=== PATIENT | female | born 1960 | race Caucasian/White ===

== ENCOUNTER → 2017-06-04 | Outpatient (CLI) | payer OTHER ==
[~2017-06-04] MED LIST: ATOR10TA88 PO; CLON1TAB3 PO; HYDR-5688 PO; MULT-506 PO; RXC5 PO; VERA240T20 PO
--- NOTE | 2017-06-04 16:02 | MAMMOGRAPHY REPORT ---
BILATERAL DIGITAL SCREENING MAMMOGRAM TOMOSYNTHESIS WITH CAD: 06/04/2017 CLINICAL HISTORY: Routine screening. Patient has no complaints. TECHNIQUE: Breast tomosynthesis in addition to standard 2D mammography was performed. Current study was also evaluated with a Computer Aided Detection (CAD) system. COMPARISON: Comparison is made to exams dated: 12/17/2013 mammogram, 12/04/2012 mammogram, 12/03/2011 ma mmogram - [facility], 06/06/2008, and 07/17/2009. BREAST COMPOSITION: The tissue of both breasts is almost entirely fatty. FINDINGS: No suspicious masses, calcifications, or areas of architectural distortion are noted in ei ther breast. There has been no significant interval change compared to prior exams. Scattered bilater al benign-appearing calcifications are not significantly changed. Nodular focal asymmetry in the rig ht upper outer quadrant is stable dating back to at least the 2008 exam. IMPRESSION: ACR BI-RADS CATEGORY 2: BENIGN There is no mammographic evidence of malignancy. A 1 year screening mammogram is recommended. The pa tient will receive written notification of the results. Approximately 10% of breast cancers are not detected with mammography. A negative mammographic report should not delay biopsy if a clinically suggestive mass is present. Bibi Cuevas M.D. ah/:06/04/2017 15:25:55 [employer] Lawyer: Jada WING)(M), [facility] letter sent: Normal 1/2 BI-RADS Code: ACR BI-RADS Category 2: Benign
== END | disposition home or self-care (01) ==
LOC: C.MAMM 14:27
PROVIDERS: ATTEND Student in an Organized Health Care Education/Training Program
DX: Z12.31 Encounter for screening mammogram for malignant neoplasm of breast (principal)

== ENCOUNTER 2019-05-03 06:45 | Inpatient (IN) ==
[2019-05-03] MEDS ORDERED: LORazepam 1 MG TAB SL STA (06:48)
[2019-05-03] MEDS ORDERED: LORazepam 1 MG TAB ONE ×2 (06:49)
[2019-05-03] MEDS ORDERED: LORazepam 2 MG/ML VIAL (IM USE) IM STA (06:50)
[2019-05-03] MEDS ORDERED: LORazepam 2 MG/ML VIAL (IM USE) ONE ×2 (06:53→06:58)
[2019-05-03 07:22] LABS: INR 1.1 (0.9-1.1); Partial Thromboplastin Time 28.1 Seconds (21.0-31.0); Prothrombin Time 10.9 Seconds (9.0-12.0)
[2019-05-03] MEDS ORDERED: OPTIRAY 320 125ml IV PRN (07:22)
[2019-05-03] MEDS ORDERED: MAGNESIUM SULFATE / D5W 1 GM/100 ML BAG IV ONE (07:23)
--- NOTE | 2019-05-03 07:26 | CT Scan Report ---
CT angio head w con CLINICAL HISTORY: 58 years-old Female with Pt c/o AMS. Acutely altered mental status COMPARISON STUDY: CT of the head of same day TECHNIQUE: Following the IV administration of 119 cc of Optiray 320, CT angiogram of the brain was pe rformed from the skull base to the vertex. Images are reviewed in the axial, sagittal, and coronal pl anes. 3-D MIPS images are created and assessed. IV contrast was administered without complication. A dose lowering technique was utilized adhering to the principles of ALARA. CT DOSE: 1112.40 mGy.cm FINDINGS: CT ANGIOGRAM OF THE BRAIN: The imaged bilateral internal carotid arteries are patent. The bilateral anterior and middle cerebral arteries are also patent. The vertebrobasilar system and posterior cerebral arteries are widely ghotra nt. There is no aneurysm, high-grade stenosis, or proximal branch occlusion identified. Dural sinuses appear patent. IMPRESSION: Unremarkable CTA of the head The above report was generated using voice recognition software. It may contain grammatical, syntax o r spelling errors. Electronically signed by: Arian Hui M.D. 05/03/2019 7:25 AM
--- NOTE | 2019-05-03 07:26 | CT Scan Report ---
CT head/brain wo con CLINICAL HISTORY: Stroke evaluation COMPARISON STUDY: No previous studies for comparison. TECHNIQUE: Axial CT of the brain is performed from the vertex to the skull base. IV contrast was not administered for this examination. A dose lowering technique was utilized adhering to the principles of ALARA. CT DOSE: FINDINGS: No intra or extra-axial mass lesions are visualized. There is no CT evidence of acute cortical infarc tion. There is no evidence of midline shift. There is no acute hemorrhage. No calvarial fractures ar e visualized. There are patchy white matter hypodensities likely on a small vessel basis. There is no evidence of pathologic ventricular dilatation. There is no evidence of acute sinusitis Foci of increased cortical attenuation within the left frontal lobe are felt to be artifactual. IMPRESSION: No acute intracranial findings Electronically signed by: Pedro Johnson M.D. 05/03/2019 7:19 AM
[2019-05-03] MEDS ORDERED: SODIUM CHLORIDE 0.9% 1000ML 1,000 ML IV ONE (07:29)
[2019-05-03 07:34] LABS: Alanine Aminotransferase 82 U/L (12-78); Albumin Level 3.1 gm/dl (3.4-5.0); Aspartate Aminotransferase 67 U/L (15-37); BUN Creatinine Ratio 2.8 (10-20); Blood Urea Nitrogen 2 mg/dl (7-18); Carbon Dioxide 22 mmol/L (21-32); Chloride 70 mmol/L (98-107); Creatinine Clr Calc Pharmacy 116.4 ml/min; Est GFR (African American) 116.9; Est GFR (Non-African American) 100.9; Glucose 177 mg/dl (70-99); Magnesium 1.5 mg/dl (1.8-2.4); Potassium 2.9 mmol/L (3.5-5.1); Sodium 110 mmol/L (136-145)
[2019-05-03] MEDS: POTASSIUM CHLORIDE / WTR 10 MEQ/100 ML PLCT IV SCH ×6 (07:34→19:44)
--- NOTE | 2019-05-03 07:34 | CT Scan Report ---
CT angio neck with con CLINICAL HISTORY: Change in mental status. Possible acute stroke. COMPARISON STUDY: No previous studies for comparison. TECHNIQUE: CT angiography was performed from the aortic arch to the skull base. MIP imaging was perfo rmed. The patient was scanned in a dynamic helical fashion during intravenous administration of 119 c c of Optiray 320. A dose lowering technique was utilized adhering to the principles of ALARA. CT DOSE: Technique: CT angiogram of the carotid and vertebral arteries was obtained using intravenous contrast and 3-D reconstruction. NASCET criteria was utilized. Findings: The right carotid revealed no evidence of aneurysm and no evidence of dissection. There is no evidenc e of hemodynamic significant stenosis. The left carotid revealed no evidence of hemodynamic significant stenosis. There is no evidence of an eurysm. There is no evidence of dissection. No significant abnormalities of the left vertebral artery are visualized. Evaluation the right verteb ral artery is limited due to artifact from cervical spine hardware. There is an equivocal stenosis of the proximal right vertebral artery. IMPRESSION: 1. No evidence of hemodynamically significant carotid stenosis. No evidence of dissection 2. No significant abnormalities the left vertebral artery identified 3. Equivocal high-grade stenosis of the proximal right vertebral artery. Evaluation is limited due to artifact secondary to cervical spine hardware. Electronically signed by: Pedro Johnson M.D. 05/03/2019 7:33 AM
[2019-05-03 07:37] LABS: Albumin Globulin Ratio 0.8 (0.9-2); Alkaline Phosphatase 123 U/L (45-117); Bilirubin,Total 1.3 mg/dl (0.2-1); Creatine Kinase MB 3.2 ng/ml (0.5-3.6); Total Protein 7.1 gm/dl (6.4-8.2); Troponin I < 0.015 ng/ml (0-0.045)
[2019-05-03 07:40] LABS: Hemoglobin 16.4 g/dL (12.0-16.0); Mean Corpuscular Hgb Conc 38.1 g/dL (32-36); Mean Corpuscular Volume 85.5 fL (80-100); RDW Coefficient of Variation 13.6 % (11.5-14.5); RDW Standard Deviation 42.1 fL (36.4-46.3); Red Blood Count 5.03 M/uL (4.2-5.4); White Blood Count 13.98 K/uL (4.8-10.8)
[2019-05-03 07:42] LABS: iSTAT Blood Urea Nitrogen < 3 mg/dl (7-18); iSTAT Carbon Dioxide 21 mEq/l (24-31); iSTAT Glucose 180 mg/dl (70-99); iSTAT Hemoglobin 17.7 g/dl (12.0-16.0)
[2019-05-03 07:52] LABS: Basophils # (auto) 0.01 K/uL (0-0.2); Basophils % (auto) 0.1 %; Eosinophils # (auto) 0.01 K/uL (0-0.5); Eosinophils % (auto) 0.1 %; Immature Granulocytes % (auto) 0.7 %; Lymphocytes # (auto) 1.03 K/uL (1.2-3.4); Lymphocytes % (auto) 7.4 %; Mean Platelet Volume 11.4 fL (7.4-10.4); Monocytes # (auto) 0.85 K/uL (0.11-0.59); Monocytes % (auto) 6.1 %; Neutrophils # (auto) 11.98 K/uL (1.4-6.5); Neutrophils % (auto) 85.6 %; Platelet Count 72 K/uL (130-400); Platelet Estimate Decreased (Normal)
[2019-05-03] MEDS ORDERED: SODIUM CHLORIDE 3 % 500 ML IV SCH (08:00)
--- NOTE | 2019-05-03 08:10 | Critical Care Consultation ---
Date of Consultation May 03, 2019 Assessment & Plan (1) Hyponatremia: Reason Critically ill: Pt is a 58yo with seizures and altered mental status likely secondary to severe hyponatremia, hypokalemia and hypomagnesemia in the setting of chronic beer ingestion and recent tramadol use. NEURO CAM ICU POSITIVE ALTERED MENTAL STATUS -Altered mental status likely secondary to electrolyte abnormalities, particularly hyponatremia -Head CT and CTA unremarkable -will continue to monitor and reorient as needed. SEIZURES -Likely secondary to severe hyponatremia -Tramadol use for back pain, lowers seizure threshold and likely contributory as well -s/p Ativan and Keppra administration in the ED HX OF ALCOHOL ABUSE -Per pt with Hx of alcohol abuse, beer drinker of 10-12 drinks per day, likely cause of electrolyte abnormalities -might require substance abuse counseling on discharge -phenobarb protocol CHRONIC BACK PAIN -continue home gabapentin -NO tramadol CARDS/VASCULAR EKG 05/03-Normal sinus rhythm with prolonged qtc, 546 HTN -BP elevated currently, continue home Verapamil HLD -continue home statin RESP -Currently on 2L O2 -Chest XR, unremarkable GI -NPO -GI prophylaxis RENAL -severe hyponatremia (110 on admission) requiring correction with hypertonic saline -Urine output greater than 2L in 2 hours--DDAVP (desmopressin) administered. -franklin in -correction of hypokalemia, hypophosphatemia, hypomagnesemia and other electrolyte abnormalities -Goal of Na of 114 today, slow replacement as quick correction can precipitate CPD ID -no concerns currently PIVs intact, arterial line CODE Status: Full DVT prophylaxis-SCDs Dispo: ICU Supervising Physician Co-Signing Physician Notes Dr. Gr was resident physician during care of patient. I separately evaluated patient for quiroz portions of the history and the exam. I was present during the critical portion of medical decision making, and I discussed the case with the resident. I generally agree with the findings and plan. Severe hyponatremia with presumptive seizure. Empiric treatment with 3% saline and patient had subsequent large urine output necessitating DDAVP. Frequent labs. I have personally spent 90 minutes of critical care time in the direct management of this patient. This is a life/limb threatening event. This includes time spent evaluating patient, direct bedside care, chart review, placing orders, interpretation of diagnostic studies, discussion with consu ltants, patient, and/or family members regarding treatment decisions, as well as other required patient management activities. This time is exclusive of all separately billable procedures, and teaching time and separate from and in addition to any other critical care service time. History of Present Illness History of Present Illness Most of the history provided by pt's and review of medical Hx. Ms. Cleaning is a 58yo with a Hx of chronic back pain s/p surgery in November 2018, who became a chronic alcohol drinker around March when she ran out of medication. states she has periods where she doesn't drink but when she does it is usually at least 12 beers a day. States she was in her usual state of mind yesterday. Yesterday he states she said she was not feeling well. However, early this morning he noticed she was mentally altered. Called EMS, and noted her having a seizure after EMS arrived. In the ED she was noted to have severe hyponatremia and electrolyte abnormalities. Allergies Allergy/AdvReac Type Severity Reaction Status Date / Time Penicillins Allergy Severe ANAPHYLAXIS Verified 05/03/19 08:06 adhesive Allergy Intermediate REDNESS Verified 05/03/19 08:06 WITH SOME BANDAIDS sulfamethoxazole Allergy Intermediate HIVES RASH Verified 05/03/19 08:06 trimethoprim Allergy Intermediate HIVES RASH Verified 05/03/19 08:06 Bactrim Allergy Unknown HIVES RASH Unverified 05/03/19 08:06 pravastatin AdvReac Mild MUSCLE PAIN Verified 05/03/19 08:06 Home Medications Home Medications Medication Instructions Recorded Confirmed Type acetaminophen [Tylenol Extra 1,000 mg PO TID 11/12/18 05/03/19 History Strength] atorvastatin 10 mg PO HS 05/03/19 05/03/19 History clonazepam 1.5 mg PO HS PRN 05/03/19 05/03/19 History gabapentin 200 mg PO TID 05/03/19 05/03/19 History tramadol 100 mg PO QID PRN 05/03/19 05/03/19 History verapamil 240 mg PO PM 05/03/19 05/03/19 History lisinopril 10 mg PO DAILY #30 tab 05/09/19 Rx metoprolol tartrate 25 mg PO BID 30 Days #60 tab 05/09/19 Rx Patient History Medical History GERD (gastroesophageal reflux disease) (Chronic) Restless leg syndrome (Chronic) Hypertension (Chronic) Hyperlipidemia (Chronic) Osteoarthritis (Chronic) Chronic back pain (Chronic) WITH RLE RADICULOPATHY Obesity (Chronic) Surgical History History of back surgery (Chronic) History of tubal ligation (Chronic) H/O neck surgery (Chronic) FUSION Hx of lumpectomy (Chronic) RIGHT BENIGN History of tooth extraction (Chronic) WISDOM TEETH Family History Sister Deep vein thrombosis Father Family hx of colon cancer Sister Heart disease Social History Preferred Language: Macedonian Communication Ability: Effective Compass Operator Required: No Beliefs That Will Affect Care: None marital status: Current Living Situation: Spouse Other Information That Helps Us Care for You: No Feels Safe at Home: Yes Smoking Status: Current every day smoker Tobacco Type: cigarettes Cigarettes Per Day: 1 pack/day Do You Dip or Chew Tobacco: No Second Hand Exposure: Yes Tobacco Cessation Education Requested by Patient: No Hx Alcohol Use: Yes Alcohol type: beer Alcohol Intake Frequency Comment: Drinks 60 beers in the past 1 week Hx Substance Use: No Review of Systems Review of Systems: Unobtainable due to cognitive status Physical Exam Physical Exam: General: Disoriented. HEENT: NC/AT Chest: Nontender to palpation. CV: RRR, Normal s1, s2. No murmurs appreciated Resp: Breath sounds clear bilaterally, no increased effort of breathing. Abdomen: Soft, nontender, nondistended. No guarding. No organomegaly appreciated. Extremities: No edema. Skin: Erythematous, warm without rashes. Psych: Not oriented. Mood and affect cannot be assessed. Results & Data Vital Signs (Past 12 Hours) Vital Signs Pulse Resp BP BP Pulse Ox 05/03/19 07:40 102 H 16 153/81 H 92 05/03/19 07:17 98 H 24 173/90 H 93 05/03/19 06:45 164/133 H Laboratory Results Laboratory Results - last 24 hr 05/03/19 05/03/19 05/03/19 07:01 07:05 07:05 WBC 13.98 H RBC 5.03 Hgb 16.4 H POC Hgb 17.7 H Hct 43.0 POC Hct 52 H MCV 85.5 MCH 32.6 MCHC 38.1 H RDW Std Deviation 42.1 RDW Coeff of Remberto 13.6 Plt Count 72 L MPV 11.4 H Immature Gran % (Auto) 0.7 Neut % (Auto) 85.6 Lymph % (Auto) 7.4 Lasalle % (Auto) 6.1 Eos % (Auto) 0.1 Baso % (Auto) 0.1 Immature Gran # (Auto) 0.10 H Neut # (Auto) 11.98 H Lymph # (Auto) 1.03 L [place] # (Auto) 0.85 H Eos # (Auto) 0.01 Baso # (Auto) 0.01 Platelet Estimate Decreased L Peripher Smr Path Cons PT 10.9 INR 1.1 APTT 28.1 PTT Ratio 1.0 VBG pH VBG pCO2 VBG pO2 VBG HCO3 VBG O2 Saturation VBG Base Excess Barometric Pressure POC Sodium 106 L* Sodium POC Potassium 2.9 L Potassium POC Chloride 70 L Chloride Carbon Dioxide POC Total CO2 21 L Anion Gap POC Anion Gap 19.0 POC BUN < 3 L BUN Creatinine POC Creatinine 0.2 L Est Cr Clr Drug Dosing Est GFR ( Amer) Est GFR (Non-Af Amer) BUN/Creatinine Ratio Glucose POC Glucose (other) 180 H Osmolality Lactate Calcium POC Ioniz Calcium Yovani 0.90 L Phosphorus Magnesium Total Bilirubin AST ALT Alkaline Phosphatase CK-MB (CK-2) Troponin I Total Protein Albumin Globulin Albumin/Globulin Ratio Urine Color Urine Appearance Urine pH Ur Specific Mcloud Urine Protein Urine Glucose (UA) Urine Ketones Urine Blood Urine Nitrite Urine Bilirubin Urine Urobilinogen Ur Leukocyte Esterase Urine WBC (Auto) Urine RBC (Auto) U Hyaline Cast (Auto) U Epithel Cells (Auto) Urine Bacteria (Auto) Urine Osmolality Ur Random Sodium Urine Sodium Urine Potassium Urine Chloride Nasal Screen MRSA (PCR) Urine Opiates Screen Ur Methadone, Qual Acetaminophen Urine Barbiturates Ur Phencyclidine (PCP) U Amphetamin/Meth Scrn MDMA (Ecstasy) Screen U Benzodiazepines Scrn Ur Cocaine Metabolite U Marijuana (THC) Screen Ethyl Alcohol mg/dL Methyl Alcohol Level A. phagocytophilum IgG A. phagocytophilum IgM A. phagocytophilum DNA A.phagocytophilum Intrp A. phagocytophilum Cmmt Lyme Disease IgG Ab Lyme Disease IgM Ab E. chaffeensis IgG Ab E. chaffeensis IgM Ab E.chaffeensis DNA (PCR) E. chaffeensis Interp E. chaffeensis Comment 07/05/03/19 05/03/19 07:05 07:41 07:41 WBC RBC Hgb POC Hgb Hct POC Hct MCV MCH MCHC RDW Std Deviation RDW Coeff of Remberto Plt Count MPV Immature Gran % (Auto) Neut % (Auto) Lymph % (Auto) Lasalle % (Auto) Eos % (Auto) Baso % (Auto) Immature Gran # (Auto) Neut # (Auto) Lymph # (Auto) [place] # (Auto) Eos # (Auto) Baso # (Auto) Platelet Estimate Peripher Smr Path Cons PT INR APTT PTT Ratio VBG pH VBG pCO2 VBG pO2 VBG HCO3 VBG O2 Saturation VBG Base Excess Barometric Pressure POC Sodium Sodium 110 L* POC Potassium Potassium 2.9 L POC Chloride Chloride 70 L Carbon Dioxide 22 POC Total CO2 Anion Gap 17.0 H POC Anion Gap POC BUN BUN 2 L Creatinine 0.58 L POC Creatinine Est Cr Clr Drug Dosing 116.4 Est GFR ( Amer) 116.9 Est GFR (Non-Af Amer) 100.9 BUN/Creatinine Ratio 2.8 L Glucose 177 H POC Glucose (other) Osmolality Lactate Calcium 8.0 L POC Ioniz Calcium Yovani Phosphorus Magnesium 1.5 L Total Bilirubin 1.3 H AST 67 H ALT 82 H Alkaline Phosphatase 123 H CK-MB (CK-2) 3.2 Troponin I < 0.015 Total Protein 7.1 Albumin 3.1 L Globulin 4.0 Albumin/Globulin Ratio 0.8 L Urine Color Urine Appearance Urine pH Ur Specific Mcloud Urine Protein Urine Glucose (UA) Urine Ketones Urine Blood Urine Nitrite Urine Bilirubin Urine Urobilinogen Ur Leukocyte Esterase Urine WBC (Auto) Urine RBC (Auto) U Hyaline Cast (Auto) U Epithel Cells (Auto) Urine Bacteria (Auto) Urine Osmolality 191 L Ur Random Sodium Urine Sodium Urine Potassium Urine Chloride Nasal Screen MRSA (PCR) Urine Opiates Screen Neg Ur Methadone, Qual Neg Acetaminophen Urine Barbiturates Neg Ur Phencyclidine (PCP) Neg U Amphetamin/Meth Scrn Neg MDMA (Ecstasy) Screen Neg U Benzodiazepines Scrn Neg Ur Cocaine Metabolite Neg U Marijuana (THC) Screen Neg Ethyl Alcohol mg/dL Methyl Alcohol Level A. phagocytophilum IgG A. phagocytophilum IgM A. phagocytophilum DNA A.phagocytophilum Intrp A. phagocytophilum Cmmt Lyme Disease IgG Ab Lyme Disease IgM Ab E. chaffeensis IgG Ab E. chaffeensis IgM Ab E.chaffeensis DNA (PCR) E. chaffeensis Interp E. chaffeensis Comment 05/03/19 05/03/19 05/03/19 07:41 07:41 07:41 WBC RBC Hgb POC Hgb Hct POC Hct MCV MCH MCHC RDW Std Deviation RDW Coeff of Remberto Plt Count MPV Immature Gran % (Auto) Neut % (Auto) Lymph % (Auto) Lasalle % (Auto) Eos % (Auto) Baso % (Auto) Immature Gran # (Auto) Neut # (Auto) Lymph # (Auto) [place] # (Auto) Eos # (Auto) Baso # (Auto) Platelet Estimate Peripher Smr Path Cons PT INR APTT PTT Ratio VBG pH VBG pCO2 VBG pO2 VBG HCO3 VBG O2 Saturation VBG Base Excess Barometric Pressure POC Sodium Sodium POC Potassium Potassium POC Chloride Chloride Carbon Dioxide POC Total CO2 Anion Gap POC Anion Gap POC BUN BUN Creatinine POC Creatinine Est Cr Clr Drug Dosing Est GFR ( Amer) Est GFR (Non-Af Amer) BUN/Creatinine Ratio Glucose POC Glucose (other) Osmolality Lactate Calcium POC Ioniz Calcium Yovani Phosphorus Magnesium Total Bilirubin AST ALT Alkaline Phosphatase CK-MB (CK-2) Troponin I Total Protein Albumin Globulin Albumin/Globulin Ratio Urine Color Yellow Urine Appearance Clear Urine pH 8.0 H Ur Specific Mcloud 1.022 Urine Protein 1+ H Urine Glucose (UA) Trace H Urine Ketones Trace H Urine Blood 2+ H Urine Nitrite Negative Urine Bilirubin Negative Urine Urobilinogen Negative Ur Leukocyte Esterase Negative Urine WBC (Auto) 0 Urine RBC (Auto) 10-30 H U Hyaline Cast (Auto) 1-5 U Epithel Cells (Auto) 5-10 H Urine Bacteria (Auto) Negative Urine Osmolality Ur Random Sodium Cancelled Urine Sodium 32 Urine Potassium 16.7 Urine Chloride 28 Nasal Screen MRSA (PCR) Urine Opiates Screen Ur Methadone, Qual Acetaminophen Urine Barbiturates Ur Phencyclidine (PCP) U Amphetamin/Meth Scrn MDMA (Ecstasy) Screen U Benzodiazepines Scrn Ur Cocaine Metabolite U Marijuana (THC) Screen Ethyl Alcohol mg/dL Methyl Alcohol Level A. phagocytophilum IgG A. phagocytophilum IgM A. phagocytophilum DNA A.phagocytophilum Intrp A. phagocytophilum Cmmt Lyme Disease IgG Ab Lyme Disease IgM Ab E. chaffeensis IgG Ab E. chaffeensis IgM Ab E.chaffeensis DNA (PCR) E. chaffeensis Interp E. chaffeensis Comment 05/03/19 05/03/19 05/03/19 08:31 08:31 08:31 WBC RBC Hgb POC Hgb Hct POC Hct MCV MCH MCHC RDW Std Deviation RDW Coeff of Remberto Plt Count MPV Immature Gran % (Auto) Neut % (Auto) Lymph % (Auto) [place] % (Auto) Eos % (Auto) Baso % (Auto) Immature Gran # (Auto) Neut # (Auto) Lymph # (Auto) [place] # (Auto) Eos # (Auto) Baso # (Auto) Platelet Estimate Peripher Smr Path Cons PT INR APTT PTT Ratio VBG pH VBG pCO2 VBG pO2 VBG HCO3 VBG O2 Saturation VBG Base Excess Barometric Pressure POC Sodium Sodium POC Potassium Potassium POC Chloride Chloride Carbon Dioxide POC Total CO2 Anion Gap POC Anion Gap POC BUN BUN Creatinine POC Creatinine Est Cr Clr Drug Dosing Est GFR ( Amer) Est GFR (Non-Af Amer) BUN/Creatinine Ratio Glucose POC Glucose (other) Osmolality 237 L* Lactate Calcium POC Ioniz Calcium Yovani Phosphorus Magnesium Total Bilirubin AST ALT Alkaline Phosphatase CK-MB (CK-2) Troponin I Total Protein Albumin Globulin Albumin/Globulin Ratio Urine Color Urine Appearance Urine pH Ur Specific Mcloud Urine Protein Urine Glucose (UA) Urine Ketones Urine Blood Urine Nitrite Urine Bilirubin Urine Urobilinogen Ur Leukocyte Esterase Urine WBC (Auto) Urine RBC (Auto) U Hyaline Cast (Auto) U Epithel Cells (Auto) Urine Bacteria (Auto) Urine Osmolality Ur Random Sodium Urine Sodium Urine Potassium Urine Chloride Nasal Screen MRSA (PCR) Urine Opiates Screen Ur Methadone, Qual Acetaminophen Urine Barbiturates Ur Phencyclidine (PCP) U Amphetamin/Meth Scrn MDMA (Ecstasy) Screen U Benzodiazepines Scrn Ur Cocaine Metabolite U Marijuana (THC) Screen Ethyl Alcohol mg/dL < 3.0 Methyl Alcohol Level A. phagocytophilum IgG A. phagocytophilum IgM A. phagocytophilum DNA A.phagocytophilum Intrp A. phagocytophilum Cmmt Lyme Disease IgG Ab Negative Lyme Disease IgM Ab Negative E. chaffeensis IgG Ab E. chaffeensis IgM Ab E.chaffeensis DNA (PCR) E. chaffeensis Interp E. chaffeensis Comment 05/03/19 05/03/19 05/03/19 08:31 08:31 08:31 WBC RBC Hgb POC Hgb Hct POC Hct MCV MCH MCHC RDW Std Deviation RDW Coeff of Remberto Plt Count MPV Immature Gran % (Auto) Neut % (Auto) Lymph % (Auto) [place] % (Auto) Eos % (Auto) Baso % (Auto) Immature Gran # (Auto) Neut # (Auto) Lymph # (Auto) [place] # (Auto) Eos # (Auto) Baso # (Auto) Platelet Estimate Peripher Smr Path Cons PT 10.9 INR 1.1 APTT PTT Ratio VBG pH VBG pCO2 VBG pO2 VBG HCO3 VBG O2 Saturation VBG Base Excess Barometric Pressure POC Sodium Sodium 113 L* POC Potassium Potassium 3.0 L POC Chloride Chloride 77 L Carbon Dioxide 23 POC Total CO2 Anion Gap 13.0 H POC Anion Gap POC BUN BUN 1 L Creatinine 0.50 L POC Creatinine Est Cr Clr Drug Dosing 135.0 Est GFR ( Amer) 122.8 Est GFR (Non-Af Amer) 105.9 BUN/Creatinine Ratio 2.4 L Glucose 187 H POC Glucose (other) Osmolality Lactate Calcium 7.5 L POC Ioniz Calcium Yovani Phosphorus 1.1 L* Magnesium 2.1 Total Bilirubin 1.2 H AST 63 H ALT 78 Alkaline Phosphatase 116 CK-MB (CK-2) Troponin I Total Protein 6.8 Albumin 2.9 L Globulin 3.9 Albumin/Globulin Ratio 0.7 L Urine Color Urine Appearance Urine pH Ur Specific Mcloud Urine Protein Urine Glucose (UA) Urine Ketones Urine Blood Urine Nitrite Urine Bilirubin Urine Urobilinogen Ur Leukocyte Esterase Urine WBC (Auto) Urine RBC (Auto) U Hyaline Cast (Auto) U Epithel Cells (Auto) Urine Bacteria (Auto) Urine Osmolality Ur Random Sodium Urine Sodium Urine Potassium Urine Chloride Nasal Screen MRSA (PCR) Urine Opiates Screen Ur Methadone, Qual Acetaminophen Urine Barbiturates Ur Phencyclidine (PCP) U Amphetamin/Meth Scrn MDMA (Ecstasy) Screen U Benzodiazepines Scrn Ur Cocaine Metabolite U Marijuana (THC) Screen Ethyl Alcohol mg/dL Methyl Alcohol Level Pending A. phagocytophilum IgG Pending A. phagocytophilum IgM Pending A. phagocytophilum DNA Pending A.phagocytophilum Intrp Pending A. phagocytophilum Cmmt Pending Lyme Disease IgG Ab Lyme Disease IgM Ab E. chaffeensis IgG Ab Pending E. chaffeensis IgM Ab Pending E.chaffeensis DNA (PCR) Pending E. chaffeensis Interp Pending E. chaffeensis Comment Pending 05/03/19 05/03/19 05/03/19 08:31 08:31 08:31 WBC RBC Hgb POC Hgb Hct POC Hct MCV MCH MCHC RDW Std Deviation RDW Coeff of Remberto Plt Count MPV Immature Gran % (Auto) Neut % (Auto) Lymph % (Auto) [place] % (Auto) Eos % (Auto) Baso % (Auto) Immature Gran # (Auto) Neut # (Auto) Lymph # (Auto) [place] # (Auto) Eos # (Auto) Baso # (Auto) Platelet Estimate Peripher Smr Path Cons PT INR APTT PTT Ratio VBG pH 7.47 H VBG pCO2 31 L VBG pO2 62 VBG HCO3 22 VBG O2 Saturation 93.3 VBG Base Excess -0.6 Barometric Pressure 728.7 POC Sodium Sodium POC Potassium Potassium POC Chloride Chloride Carbon Dioxide POC Total CO2 Anion Gap POC Anion Gap POC BUN BUN Creatinine POC Creatinine Est Cr Clr Drug Dosing Est GFR ( Amer) Est GFR (Non-Af Amer) BUN/Creatinine Ratio Glucose POC Glucose (other) Osmolality Lactate 2.8 H* Calcium POC Ioniz Calcium Yovani Phosphorus Magnesium Total Bilirubin AST ALT Alkaline Phosphatase CK-MB (CK-2) Troponin I Total Protein Albumin Globulin Albumin/Globulin Ratio Urine Color Urine Appearance Urine pH Ur Specific Mcloud Urine Protein Urine Glucose (UA) Urine Ketones Urine Blood Urine Nitrite Urine Bilirubin Urine Urobilinogen Ur Leukocyte Esterase Urine WBC (Auto) Urine RBC (Auto) U Hyaline Cast (Auto) U Epithel Cells (Auto) Urine Bacteria (Auto) Urine Osmolality Ur Random Sodium Urine Sodium Urine Potassium Urine Chloride Nasal Screen MRSA (PCR) Urine Opiates Screen Ur Methadone, Qual Acetaminophen < 2 L Urine Barbiturates Ur Phencyclidine (PCP) U Amphetamin/Meth Scrn MDMA (Ecstasy) Screen U Benzodiazepines Scrn Ur Cocaine Metabolite U Marijuana (THC) Screen Ethyl Alcohol mg/dL Methyl Alcohol Level A. phagocytophilum IgG A. phagocytophilum IgM A. phagocytophilum DNA A.phagocytophilum Intrp A. phagocytophilum Cmmt Lyme Disease IgG Ab Lyme Disease IgM Ab E. chaffeensis IgG Ab E. chaffeensis IgM Ab E.chaffeensis DNA (PCR) E. chaffeensis Interp E. chaffeensis Comment 05/03/19 05/03/19 05/03/19 08:31 09:00 09:26 WBC RBC Hgb POC Hgb Hct POC Hct MCV MCH MCHC RDW Std Deviation RDW Coeff of Remberto Plt Count MPV Immature Gran % (Auto) Neut % (Auto) Lymph % (Auto) [place] % (Auto) Eos % (Auto) Baso % (Auto) Immature Gran # (Auto) Neut # (Auto) Lymph # (Auto) [place] # (Auto) Eos # (Auto) Baso # (Auto) Platelet Estimate Peripher Smr Path Cons Pending PT INR APTT PTT Ratio VBG pH VBG pCO2 VBG pO2 VBG HCO3 VBG O2 Saturation VBG Base Excess Barometric Pressure POC Sodium Sodium Pending POC Potassium Potassium Pending POC Chloride Chloride Pending Carbon Dioxide Pending POC Total CO2 Anion Gap Pending POC Anion Gap POC BUN BUN Pending Creatinine Pending POC Creatinine Est Cr Clr Drug Dosing Pending Est GFR ( Amer) Pending Est GFR (Non-Af Amer) Pending BUN/Creatinine Ratio Pending Glucose Pending POC Glucose (other) Osmolality Lactate Calcium Pending POC Ioniz Calcium Yovani Phosphorus Magnesium Total Bilirubin AST ALT Alkaline Phosphatase CK-MB (CK-2) Troponin I Total Protein Albumin Globulin Albumin/Globulin Ratio Urine Color Urine Appearance Urine pH Ur Specific Mcloud Urine Protein Urine Glucose (UA) Urine Ketones Urine Blood Urine Nitrite Urine Bilirubin Urine Urobilinogen Ur Leukocyte Esterase Urine WBC (Auto) Urine RBC (Auto) U Hyaline Cast (Auto) U Epithel Cells (Auto) Urine Bacteria (Auto) Urine Osmolality Ur Random Sodium Urine Sodium Urine Potassium Urine Chloride Nasal Screen MRSA (PCR) Pending Urine Opiates Screen Ur Methadone, Qual Acetaminophen Urine Barbiturates Ur Phencyclidine (PCP) U Amphetamin/Meth Scrn MDMA (Ecstasy) Screen U Benzodiazepines Scrn Ur Cocaine Metabolite U Marijuana (THC) Screen Ethyl Alcohol mg/dL Methyl Alcohol Level A. phagocytophilum IgG A. phagocytophilum IgM A. phagocytophilum DNA A.phagocytophilum Intrp A. phagocytophilum Cmmt Lyme Disease IgG Ab Lyme Disease IgM Ab E. chaffeensis IgG Ab E. chaffeensis IgM Ab E.chaffeensis DNA (PCR) E. chaffeensis Interp E. chaffeensis Comment Medications Administered Home Medications acetaminophen [Tylenol Extra Strength] 1,000 mg PO TID 11/12/18 [History Confirmed 05/03/19] atorvastatin 10 mg PO HS 05/03/19 [History Confirmed 05/03/19] clonazepam 1.5 mg PO HS PRN 05/03/19 [History Confirmed 05/03/19] gabapentin 200 mg PO TID 05/03/19 [History Confirmed 05/03/19] tramadol 100 mg PO QID PRN 05/03/19 [History Confirmed 05/03/19] verapamil 240 mg PO PM 05/03/19 [History Confirmed 05/03/19] Active Medications Albuterol (Duoneb) 3 ml INH Q4H PRN PRN Reason: Dyspnea Stop: 06/02/19 09:08 Atorvastatin Calcium (Lipitor) 10 mg PO HS [facility] Stop: 06/02/19 20:59 Dextrose (Dextrose 50%) 25 - 50 ml IV UD PRN; Protocol PRN Reason: Hypoglycemia Protocol Stop: 06/02/19 09:08 Gabapentin (Neurontin) 200 mg PO TID [facility]AS[facility] Stop: 06/02/19 09:29 Glucagon (Glucagen) 1 mg SQ UD PRN; Protocol PRN Reason: Hypoglycemia Protocol Stop: 06/02/19 09:08 Glucose (Glucose 40%) 15 - 30 gm PO UD PRN; Protocol PRN Reason: Hypoglycemia Protocol Stop: 06/02/19 09:08 Glucose (Dex4 Glucose) 4 - 8 tabs PO UD PRN; Protocol PRN Reason: Hypoglycemia Protocol Stop: 06/02/19 09:08 Desmopressin Acetate 2 mcg/ (Sodium Chloride) 50.5 mls @ 100 mls/hr IV Q8H [facility] Stop: 05/05/19 01:31 Last Admin: 05/03/19 09:37 Dose: 100 mls/hr Documented by: Parenteral Electrolytes (Normosol-R) 1,000 mls @ 100 mls/hr IV .Q10H [facility] Stop: 06/02/19 09:59 Last Admin: 05/03/19 09:57 Dose: 100 mls/hr Documented by: Phenobarbital Sodium 160 mg/ (Syringe) 1.2308 mls @ 0 mls/min IM Q3H [facility] Stop: 05/03/19 16:01 Potassium Phosphate 27 mmol/ (Sodium Chloride) 509 mls @ 101.8 mls/hr IV NOW ONE Stop: 05/03/19 14:59 Last Admin: 05/03/19 10:05 Dose: 101.8 mls/hr Documented by: Insulin Aspart (Novolog Flexpen) 0 units SC ACHS [facility] Stop: 06/02/19 11:29 Miscellaneous (Icu Protocol For Hyperglycemia) 1 ea N/A PRN PRN; Protocol PRN Reason: Hyperglycemia Protocol Stop: 05/05/19 09:08 Miscellaneous (Carbohydrates For Hypoglycemia) 15 - 30 gm PO UD PRN PRN Reason: Hypoglycemia Treatment Stop: 06/02/19 09:08 Phenobarbital (Phenobarbital) 64.8 mg PO BID [facility] Stop: 05/04/19 09:01 Phenobarbital (Phenobarbital) 32.4 mg PO BID [facility] Stop: 05/05/19 21:01 Phenobarbital Sodium (Phenobarbital Sodium) 64 mg IM Q6H PRN PRN Reason: Undecided Stop: 06/02/19 08:43 Verapamil HCl (Calan Sr) 240 mg PO QAM [facility] Stop: 06/02/19 09:29 PG Care Time/CCT Total # of Minutes Spent Total Time Spent with Patient: Total time spent is greater than 50% in coordination of care (as documented) at patient's floor/unit and/or counseling patient: Critical Care Time: Yes Total Critical Care Time: 90
--- NOTE | 2019-05-03 08:16 | XRay Report ---
XR chest 1V portable HISTORY: 58 years-old Female Pt c/o AMS acutely altered mental status COMPARISON: Chest radiograph 11/20/2018, CTA of the neck 05/03/2019. TECHNIQUE: Portable AP view of the chest FINDINGS: Cardiomediastinal and hilar silhouettes are within normal limits. No pneumothorax, pleural effusion, focal airspace consolidation or overt pulmonary edema. Bones of the chest appear grossly intact. Fusi on hardware of the cervical spine. IMPRESSION: No acute process. The above report was generated using voice recognition software. It may contain grammatical, syntax o r spelling errors. Electronically signed by: Arian Hui M.D. 05/03/2019 8:15 AM
[2019-05-03 08:26] LABS: Amphetamines+Metham, Urine Neg (Neg); Barbiturates, Urine Neg (Neg); Benzodiazepine, Urine Neg (Neg); Cocaine, Urine Neg (Neg); MDMA (Ecstacy), Urine Neg (Neg); Methadone, Urine Neg (Neg); Opiate, Urine Neg (Neg); Phencyclidine, Urine Neg (Neg)
[2019-05-03 08:38] LABS: Appearance Urine Clear (Clear); Bacteria Urine Automated Negative (Negative); Bilirubin Urine Negative (Negative); Color Urine Yellow; Glucose Urine UA Trace (Negative); Ketones Urine Trace (Negative); Leukocyte Esterase Urine Negative (Negative); Nitrite Urine Negative (Negative); Specific Gravity Urine 1.022 (1.000-1.030); Urobilinogen Urine Negative (Negative); WBC Urine Automated 0 /hpf (0-5)
[2019-05-03] MEDS ORDERED: PHENobarbital sodium 65 MG/ML VIAL IM PRN (08:44)
[2019-05-03 08:51] LABS: Base Excess VBG -0.6 mEq/L; Oxygen Saturation VBG 93.3 %; pH VBG 7.47 (7.36-7.41)
[2019-05-03 08:52] LABS: Protein Urine 1+ (Negative)
[2019-05-03 09:05] LABS: INR 1.1 (0.9-1.1); Prothrombin Time 10.9 Seconds (9.0-12.0)
[2019-05-03] MEDS ORDERED: CARBOHYDRATES FOR HYPOGLYCEMIA PO PRN (09:09)
[2019-05-03] MEDS ORDERED: GLUCAGON FOR INJ 1 MG VIAL SQ PRN (09:09)
[2019-05-03] MEDS ORDERED: GLUCOSE 10 TABS/TUBE PO PRN (09:09)
[2019-05-03] MEDS ORDERED: ALBUT/IPRATROP 3MG/0.5MG NEB 3 ML VIAL INH PRN (09:09)
[2019-05-03] MEDS ORDERED: DEXTROSE 50% 50 ML SYRINGE IV PRN (09:09)
[2019-05-03] MEDS ORDERED: GLUCOSE 40% GEL 15 GM TUBE PO PRN (09:09)
[2019-05-03] MEDS ORDERED: ICU PROTOCOL FOR HYPERGLYCEMIA PRN (09:09)
[2019-05-03 09:18] LABS: Albumin Level 2.9 gm/dl (3.4-5.0); BUN Creatinine Ratio 2.4 (10-20); Calcium 7.5 mg/dl (8.5-10.1); Est GFR (African American) 122.8; Est GFR (Non-African American) 105.9; Magnesium 2.1 mg/dl (1.8-2.4)
[2019-05-03] MEDS ORDERED: PHENobarbital sodium 65 MG/ML VIAL IM STA ×2 (09:20→09:23)
[2019-05-03 09:25] LABS: Albumin Globulin Ratio 0.7 (0.9-2); Bilirubin,Total 1.2 mg/dl (0.2-1); Globulin 3.9 gm/dl (2.5-4.0); Phosphorus 1.1 mg/dl (2.5-4.9); Total Protein 6.8 gm/dl (6.4-8.2)
[2019-05-03] MEDS ORDERED: POTASSIUM PHOS 3 MMOL/1 ML INFUSION IV STA (09:29)
[2019-05-03] MEDS: DESMOPRESSIN ACETATE 2 MCG in SODIUM CHLORIDE 0.9% 50 ML IV SCH ×2 (09:37→16:29)
[2019-05-03] MEDS ORDERED: PHENOBARBITAL SODIUM IM STA (09:42)
[2019-05-03 09:49] LABS: Lyme Ab IgG w/WB Rflx Negative (Negative); Lyme Ab IgM w/WB Rflx Negative (Negative)
[2019-05-03] MEDS ORDERED: NORMOSOL-R 1,000 ML IV SCH (10:00)
[2019-05-03] MEDS ORDERED: POTASSIUM PHOSPHATE IV ONE (10:00)
[2019-05-03] MEDS ORDERED: SODIUM CHLORIDE 0.9% IV ONE (10:00)
[2019-05-03] MEDS: VERAPAMIL HCL 240 MG TABCR PO SCH (10:09)
[2019-05-03] MEDS: GABAPENTIN 100 MG CAP PO SCH ×3 (10:09→20:50)
--- NOTE | 2019-05-03 10:21 | History & Physical Report ---
Date of Service May 03, 2019 Assessment & Plan (1) Hyponatremia: -Admit to ICU -Patient presenting from home after witnessed her having a seizure -In the ED, Na+ 110 -Hyponatremia likely secondary to recent poor p.o. intake and increased alcohol use (60 beers in the past 1 week) -Management as per ICU; currently started on DDAVP and Normosol infusions (2) Seizure: -Because likely multifactorial: Hyponatremia, alcohol use, recent addition of tramadol -Received Keppra in the ED, currently on phenobarbital as per ICU recommendations -Consider EEG or MRI once stable (3) Alcohol abuse: -Per , recent increased alcohol intake due to chronic back pain -On phenobarbital infusion per ICU -Monitor closely for signs of withdrawal -Start multivitamin, folic acid, thiamine when appropriate (4) Electrolyte abnormality: -In addition to hyponatremia, patient also has hypokalemia, hypomagnesemia, hypophosphatemia -Likely due to poor p.o. intake, increase alcohol intake -replace, monitor electrolytes (5) Thrombocytopenia: -Platelets 70 2K -Possibly secondary to chronic alcohol use -No signs of bleeding -Monitor platelet (6) Hypertension: -BP elevated, likely secondary to acute illness/stress -Continue home dose of verapamil for now (7) Hyperlipidemia: -Continue statin (8) DVT prophylaxis: -SCDs due to thrombocytopenia History of Present Illness Chief Complaint: Altered mental status Primary Care Provider: Daphne Stauffer DO 58-year-old female who presents the ED with altered mental status. History is currently unobtainable from the patient and some information is obtained from the who is the bedside. He reports that over the past week, patient has had a very poor appetite. Patient also had back surgery in November. Per review of outpatient records, orthopedic surgeon stopped prescribing the patient oxycodone. Patient was then prescribed tramadol by PCP for pain control. reports that about 1 week ago, patient started using alcohol to help control her back pain. He reports that she has drank about 60 cans of beer in the past week. He reports that she stated she did not feel well last evening. She woke up around 530 this morning and requested a cup of tea. Patient was s itting in the living room drinking her tea when the heard a loud noise for me in the room. He went to check on her, he reports he saw the cup of tea on the floor and patient was very stiff with eyes closed and would not respond. She subsequently then had a seizure. EMS was called and patient was brought to the ED for further evaluation. In the ED, labs show a critically low sodium of 110. Patient is agitated and restless. Head CT, CXR, head CTA, neck CTA are all negative for acute findings. In the ER, patient received IVF, IV Keppra, lorazepam 2 mg IM, lorazepam 2 mg SL, potassium replacement. Patient was evaluated by Dr. Huitron in the ED and will be transferred to the ICU for further management. Allergies Allergy/AdvReac Type Severity Reaction Status Date / Time Penicillins Allergy Severe ANAPHYLAXIS Verified 05/03/19 08:06 adhesive Allergy Intermediate REDNESS Verified 05/03/19 08:06 WITH SOME BANDAIDS sulfamethoxazole Allergy Intermediate HIVES RASH Verified 05/03/19 08:06 trimethoprim Allergy Intermediate HIVES RASH Verified 05/03/19 08:06 Bactrim Allergy Unknown HIVES RASH Unverified 05/03/19 08:06 pravastatin AdvReac Mild MUSCLE PAIN Verified 05/03/19 08:06 Home Medications Home Medications Medication Instructions Recorded Confirmed Type acetaminophen [Tylenol Extra 1,000 mg PO TID 11/12/18 05/03/19 History Strength] atorvastatin 10 mg PO HS 05/03/19 05/03/19 History clonazepam 1.5 mg PO HS PRN 05/03/19 05/03/19 History gabapentin 200 mg PO TID 05/03/19 05/03/19 History tramadol 100 mg PO QID PRN 05/03/19 05/03/19 History verapamil 240 mg PO PM 05/03/19 05/03/19 History Past Med/Surg History Medical History GERD (gastroesophageal reflux disease) (Chronic) Restless leg syndrome (Chronic) Hypertension (Chronic) Hyperlipidemia (Chronic) Osteoarthritis (Chronic) Chronic back pain (Chronic) WITH RLE RADICULOPATHY Obesity (Chronic) Surgical History History of back surgery (Chronic) History of tubal ligation (Chronic) H/O neck surgery (Chronic) FUSION Hx of lumpectomy (Chronic) RIGHT BENIGN History of tooth extraction (Chronic) WISDOM TEETH Family History Sister Deep vein thrombosis Father Family hx of colon cancer Sister Heart disease Social History Preferred Language: [place] Communication Ability: Effective Occupational Therapy Asst Required: No Beliefs That Will Affect Care: None marital status: Current Living Situation: Spouse Other Information That Helps Us Care for You: No Feels Safe at Home: Yes Smoking Status: Current every day smoker Tobacco Type: cigarettes Cigarettes Per Day: 1 pack/day Do You Dip or Chew Tobacco: No Second Hand Exposure: Yes Tobacco Cessation Education Requested by Patient: No Hx Alcohol Use: Yes Alcohol type: beer Alcohol Intake Frequency Comment: Drinks 60 beers in the past 1 week Hx Substance Use: No Review of Systems Review of Systems: Unobtainable due to cognitive status Physical Exam Constitutional: WD/WN, vitals as above + ill appearing Agitated, restless Eyes: PERRL, conjunctivae normal, anicteric sclerae ENMT: external ear and nose normal, oropharynx normal Respiratory: + tachypneic Auscultation: + diminished lung sounds and + wheezes (Mild, and expiratory) Cardiovascular: Rate/Rhythm: regular rhythm and + tachycardic Vessels: normal peripheral pulses Extremities: no edema Gastrointestinal (Abdomen): normal bowel sounds, soft, nontender, no hepatosplenomegaly Musculoskeletal: Extremities: no cyanosis and no clubbing Unable to c ooperate for strength exam however moving all extremities Skin: no rashes, warm and dry Flushed from upper chest to face Neurologic: Agitated and restless, unable to cooperate for full neurological exam Psychiatric: Orientation: alert; + not oriented x 3 Affect: + anxious affect Genitourinary: Abbasi in place draining clear yellow urine Results & Data Vital Signs (Past 12 Hours) Vital Signs Pulse Resp BP BP Pulse Ox 05/03/19 08:39 112 H 16 204/97 H 93 05/03/19 08:11 110 H 16 178/103 H 92 05/03/19 07:40 102 H 16 153/81 H 92 05/03/19 07:17 98 H 24 173/90 H 93 05/03/19 06:45 164/133 H Laboratory Results Short CBC 05/03/19 05/03/19 05/03/19 Range/Units 07:05 07:05 08:31 WBC 13.98 H (4.8-10.8) K/uL Hgb 16.4 H (12.0-16.0) g/dL Hct 43.0 (37-47) % Plt Count 72 L (130-400) K/uL Sodium 110 L* 113 L* (136-145) mmol/L BMP 05/03/19 05/03/19 07:05 08:31 Sodium 110 L* 113 L* Potassium 2.9 L 3.0 L Chloride 70 L 77 L Carbon Dioxide 22 23 BUN 2 L 1 L Creatinine 0.58 L 0.50 L Glucose 177 H 187 H Calcium 8.0 L 7.5 L Cardiac Enzymes 05/03/19 Range/Units 07:05 CK-MB (CK-2) 3.2 (0.5-3.6) ng/ml Troponin I < 0.015 (0-0.045) ng/ml Liver Function 05/03/19 05/03/19 Range/Units 07:05 08:31 Total Bilirubin 1.3 H 1.2 H (0.2-1) mg/dl AST 67 H 63 H (15-37) U/L ALT 82 H 78 (12-78) U/L Alkaline Phosphatase 123 H 116 (45-117) U/L Albumin 3.1 L 2.9 L (3.4-5.0) gm/dl Urine 05/03/19 Range/Units 07:41 Urine Color Yellow Urine Appearance Clear (Clear) Urine pH 8.0 H (4.5-7.5) Ur Specific [place] 1.022 (1.000-1.030) Urine Protein 1+ H (Negative) Urine Glucose (UA) Trace H (Negative) Diagnostic Findings HEAD CT IMPRESSION: No acute intracranial findings CXR IMPRESSION: No acute process. HEAD CTA IMPRESSION: Unremarkable CTA of the head NECK CTA IMPRESSION: 1. No evidence of hemodynamically significant carotid stenosis. No evidence of dissection 2. No significant abnormalities the left vertebral artery identified 3. Equivocal high-grade stenosis of the proximal right vertebral artery. Evaluation is limited due to artifact secondary to cervical spine hardware. Code Status & VTE Plan VTE Prophylaxis Plan VTE Prophylaxis will be ordered: Yes Supervising Physician Co-Signing Physician Notes I have seen and examined the patient and have discussed the case with the provider above. I agree with the assessment and plan as stated with the following exceptions. 58 yo alcoholic female who was recently on Tramadol for chronic uncontrolled back pain presented to the ER via EMS after seizing at home. She was found to have a Na 110 and was given 1L of normal saline. She w as placed in the ICU for further management and close monitoring of her sodium trend and clinical progress. She is likely withdrawing from alcohol as her last drink was reported two days ago. states she picked up drinking alcohol again as a way to cope with the back pain. This will need to be addressed more completely at time of discharge. Cannot obtain ROS 2/2 obtunded mental state. and children are at bedside and provided the history. She also takes clonazepam 1.5mg qHS and is a smoker, which are two additional agents that she may withdraw from while hospitalized. She appears hypertensive and tachycardic on exam consistent with a withdrawal state and has been sedated with phenobarbital. Heart sounds are normal without evidence of murmur, gallop or rub, and lungs are clear to auscultation. I can passively more her arms and legs equally, and she is gripping my hands in a fist when I grab her hand. This is equal bilaterally. Cont with current ICU management. DO Víctor
[2019-05-03 10:45] LABS: BUN Creatinine Ratio 2.4 (10-20); Calcium 7.5 mg/dl (8.5-10.1); Creatinine Clr Calc Pharmacy 127.3 ml/min; Est GFR (African American) 120.5; Est GFR (Non-African American) 103.9; Potassium 2.8 mmol/L (3.5-5.1)
[2019-05-03] MEDS: DEXTROSE 5% 1,000 ML IV SCH (10:58)
[2019-05-03] MEDS ORDERED: Nursing to Pharmacy Communication ONE (11:14)
[2019-05-03] MEDS ORDERED: POTASSIUM PHOSPHATE 21 MMOL in DEXTROSE 5% 500 ML IV ONE (11:15)
[2019-05-03] MEDS ORDERED: INSULIN ASPART 100 UNITS/ML 3 ML PEN SC SCH (11:30)
[2019-05-03 12:09] LABS: BUN Creatinine Ratio 2.5 (10-20); Calcium 7.7 mg/dl (8.5-10.1); Creatinine Clr Calc Pharmacy 173.1 ml/min; Est GFR (African American) 133.2
[2019-05-03] MEDS: INSULIN ASPART 100 UNITS/ML 3 ML PEN SC SCH ×3 (12:26→23:56)
[2019-05-03] MEDS ORDERED: PHENobarbital sodium 65 MG/ML VIAL IM SCH (12:30)
[2019-05-03] MEDS ORDERED: ACETAMINOPHEN 650 MG SUPP ONE (13:35)
[2019-05-03 14:28] LABS: BUN Creatinine Ratio 2.5 (10-20); Calcium 7.7 mg/dl (8.5-10.1); Creatinine Clr Calc Pharmacy 153.4 ml/min; Est GFR (African American) 128.1; Est GFR (Non-African American) 110.5; Potassium 3.1 mmol/L (3.5-5.1)
--- NOTE | 2019-05-03 14:53 | Emergency Department Note ---
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 Per the EMS, the patient was sitting in her living room this morning when the heard her drop a cup. They report that the patient was then gasping for air like she was chocking. The patients states that he saw that she fell backwards on the couch and looked like she was foaming at the mouth. He states that he tried to ask her questions but she was not responding, so he called EMS. Per EMS, when they arrived the patient was found just staring into space and then had a seizure. They note that the patient bit her tongue. They state that the patient was no answering questions responsively on the way to the ED and was combative. The EMS state that the patient is on Gabapentin and Tramadol. They state that she did not receive any treatment prior to arrival. Home Medications Home Medications Medication Instructions Recorded Confirmed Type acetaminophen [Tylenol Extra 1,000 mg PO TID 11/12/18 05/03/19 History Strength] atorvastatin 10 mg PO HS 05/03/19 05/03/19 History clonazepam 1.5 mg PO HS PRN 05/03/19 05/03/19 History gabapentin 200 mg PO TID 05/03/19 05/03/19 History tramadol 100 mg PO QID PRN 05/03/19 05/03/19 History verapamil 240 mg PO PM 05/03/19 05/03/19 History Allergies Allergy/AdvReac Type Severity Reaction Status Date / Time Penicillins Allergy Severe ANAPHYLAXIS Verified 05/03/19 08:06 adhesive Allergy Intermediate REDNESS Verified 05/03/19 08:06 WITH SOME BANDAIDS sulfamethoxazole Allergy Intermediate HIVES RASH Verified 05/03/19 08:06 trimethoprim Allergy Intermediate HIVES RASH Verified 05/03/19 08:06 Bactrim Allergy Unknown HIVES RASH Unverified 05/03/19 08:06 pravastatin AdvReac Mild MUSCLE PAIN Verified 05/03/19 08:06 Past Med/Surg History Medical History GERD (gastroesophageal reflux disease) (Chronic) Restless leg syndrome (Chronic) Hypertension (Chronic) Hyperlipidemia (Chronic) Osteoarthritis (Chronic) Chronic back pain (Chronic) WITH RLE RADICULOPATHY Obesity (Chronic) Surgical History History of back surgery (Chronic) History of tubal ligation (Chronic) H/O neck surgery (Chronic) FUSION Hx of lumpectomy (Chronic) RIGHT BENIGN History of tooth extraction (Chronic) WISDOM TEETH Family History Sister Deep vein thrombosis Father Family hx of colon cancer Sister Heart disease Social History Preferred Language: Swedish Communication Ability: Effective Jacquard Card Lacer Required: No Beliefs That Will Affect Care: None marital status: Current Living Situation: Spouse Other Information That Helps Us Care for You: No Feels Safe at Home: Yes Smoking Status: Current every day smoker Tobacco Type: cigarettes Cigarettes Per Day: 1 pack/day Do You Dip or Chew Tobacco: No Second Hand Exposure: Yes Tobacco Cessation Education Requested by Patient: No Hx Alcohol Use: Yes Alcohol type: beer Alcohol Intake Frequency Comment: Drinks 60 beers in the past 1 week Hx Substance Use: No Review of Systems See HPI for pertinent positives & negatives. and A total of 10 systems reviewed and were otherwise negative Physical Exam Vital Signs Vital Signs - 24 hr 05/03/19 07:17 05/03/19 07:40 Pulse Rate [Right Finger] 98 H 102 H Respiratory Rate 24 16 Respiratory Effort / Characteristics Non-Labored Respiratory Depth Normal Normal Blood Pressure [Right Arm] 173/90 H 153/81 H Blood Pressure Mean [Right Arm] 117 105 Pulse Oximetry 93 92 Oxygen Delivery Method Nasal Cannula Nasal Cannula Oxygen Flow Rate 2 2 GENERAL: Awake, alert, flushed appearing, speaking jibberish, difficult to control, writhing around the bed, difficult to control. HENT: Normocephalic, atraumatic. Oropharynx unremarkable. EYES: Normal conjunctiva. Sclera non-icteric. NECK: Supple. No nuchal rigidity. FROM. No JVD. RESPIRATORY: Clear to auscultation. CARDIAC: Regular rate, normal rhythm. Extremities warm and well perfused. Pulses equal. ABDOMEN: Soft, non-distended. No tenderness to palpation. No rebound or guarding. No masses. RECTAL: Deferred. MUSCULOSKELETAL: Chest examination reveals no tenderness. The back is symmetrical on inspection without obvious abnormality. There is no CVA tenderness to palpation. No joint edema. LOWER EXTREMITIES: Calves are equal size bilaterally and non-tender. No edema. No discoloration. NEURO: No sensory or motor deficits noted. SKIN: No rash or jaundice noted. Course 0645: The patient was evaluated in room B1, and a complete history and physical examination were performed. 0732: I discussed the patient's case with Dr. Simi Alejandro Nephrology. 0800: The patient will be further evaluated in the ICU. Consultations Consultation #1: Dr. Simi Alejandro Nephrology Time: 07:32 Administered Medications Atorvastatin Calcium (Lipitor) 10 mg PO HS [facility] Stop: 06/02/19 20:59 Last Admin: 05/03/19 20:50 Dose: Not Given Documented by: [id number] Gabapentin (Neurontin) 200 mg PO TID [facility] Stop: 06/02/19 09:29 Last Admin: 05/03/19 20:50 Dose: Not Given Documented by: [id number] Admin: 05/03/19 14:20 Dose: Not Given Documented by: [id number] Admin: 05/03/19 10:09 Dose: Not Given Documented by: [id number] Desmopressin Acetate 2 mcg/ (Sodium Chloride) 50.5 mls @ 100 mls/hr IV Q8H [facility] Stop: 05/05/19 01:31 Last Infusion: 05/04/19 01:25 Dose: 0 mls/hr Documented by: [id number] Admin: 05/04/19 00:46 Dose: 100 mls/hr Documented by: [id number] Infusion: 05/03/19 17:19 Dose: 0 mls/hr Documented by: [id number] Admin: 05/03/19 16:29 Dose: 100 mls/hr Documented by: [id number] Infusion: 05/03/19 10:19 Dose: 0 mls/hr Documented by: [id number] Admin: 05/03/19 09:37 Dose: 100 mls/hr Documented by: [id number] Dextrose (D5w) 1,000 mls @ 70 mls/hr IV .[id number] [facility] Stop: 06/02/19 10:59 Last Admin: 05/04/19 00:46 Dose: 70 mls/hr Documented by: [id number] Infusion: 05/04/19 00:46 Dose: 0 mls/hr Documented by: [id number] Admin: 05/03/19 10:58 Dose: 70 mls/hr Documented by: [id number] Insulin Aspart (Novolog Flexpen) 0 units SC Q6 [facility] Stop: 06/02/19 11:59 Last Admin: 05/04/19 06:02 Dose: Not Given Documented by: [id number] Cosigned by: [id number] Admin: 05/03/19 23:56 Dose: Not Given Documented by: [id number] Cosigned by: [id number] Admin: 05/03/19 18:25 Dose: Not Given Documented by: [id number] Cosigned by: [id number] Admin: 05/03/19 12:26 Dose: Not Given Documented by: [id number] Cosigned by: [id number] Phenobarbital (Phenobarbital) 64.8 mg PO BID [facility] Stop: 05/04/19 09:01 Last Admin: 05/03/19 20:50 Dose: Not Given Documented by: [id number] Verapamil HCl (Calan Sr) 240 mg PO QAM [facility] Stop: 06/02/19 09:29 Last Admin: 05/03/19 10:09 Dose: Not Given Documented by: [id number] Discontinued Medications Acetaminophen (Tylenol) Confirm Administered Dose 650 mg .ROUTE .STK-MED ONE Stop: 05/03/19 13:36 Last Admin: 05/03/19 14:20 Dose: 650 mg Documented by: [id number] Levetiracetam 1,000 mg/ (Dextrose) 110 mls @ 440 mls/hr IV NOW STA Stop: 05/03/19 07:31 Last Infusion: 05/03/19 07:47 Dose: 0 mls/hr Documented by: [id number] Admin: 05/03/19 07:30 Dose: 440 mls/hr Documented by: [id number] Levetiracetam 1,000 mg/ (Dextrose) 110 mls @ 440 mls/hr IV NOW STA Stop: 05/03/19 07:35 Last Admin: 05/03/19 07:30 Dose: Not Given Documented by: [id number] Magnesium Sulfate/Dextrose (Magnesium Sulfate / D5w) 1 gm in 100 mls @ 100 mls/hr IV ONE ONE Stop: 05/03/19 08:22 Last Infusion: 05/03/19 09:32 Dose: 0 mls/hr Documented by: [id number] Admin: 05/03/19 07:30 Dose: 100 mls/hr Documented by: [id number] Potassium Chloride (K Edwin / Wtr) 10 meq in 100 mls @ 100 mls/hr IV Q1H [facility] Stop: 05/03/19 09:29 Last Infusion: 05/03/19 10:57 Dose: 0 mls/hr Documented by: [id number] Admin: 05/03/19 09:31 Dose: 100 mls/hr Documented by: [id number] Infusion: 05/03/19 09:12 Dose: 0 mls/hr Documented by: [id number] Admin: 05/03/19 07:34 Dose: 100 mls/hr Documented by: [id number] Sodium Chloride (Nss 1000ml) 1,000 mls @ 999 mls/hr IV .Q1H1M ONE Stop: 05/03/19 08:29 Last Infusion: 05/03/19 08:04 Dose: 0 mls/hr Documented by: [id number] Admin: 05/03/19 07:35 Dose: 999 mls/hr Documented by: [id number] Sodium Chloride (Hypertonic Saline 3%) 500 mls @ 50 mls/min IV .Q10M [facility]ASIA; Protocol Stop: 05/03/19 08:01 Last Infusion: 05/03/19 10:00 Dose: 0 mls/min Documented by: [id number] Admin: 05/03/19 08:01 Dose: 50 mls/min Documented by: [id number] Parenteral Electrolytes (Normosol-R) 1,000 mls @ 100 mls/hr IV .Q10H [facility] Stop: 06/02/19 09:59 Last Infusion: 05/03/19 10:58 Dose: 0 mls/hr Documented by: [id number] Infusion: 05/03/19 10:57 Dose: 0 mls/hr Documented by: [id number] Admin: 05/03/19 09:57 Dose: 100 mls/hr Documented by: [id number] Phenobarbital Sodium 160 mg/ (Syringe) 1.2308 mls @ 0 mls/min IM Q3H [facility] Stop: 05/03/19 16:01 Last Admin: 05/03/19 16:28 Dose: 160 mls/min Documented by: [id number] Admin: 05/03/19 13:28 Dose: 160 mls/min Documented by: [id number] Potassium Phosphate 27 mmol/ (Sodium Chloride) 509 mls @ 101.8 mls/hr IV NOW ONE Stop: 05/03/19 14:59 Last Infusion: 05/03/19 11:21 Dose: 0 mls/hr Documented by: [id number] Admin: 05/03/19 10:05 Dose: 101.8 mls/hr Documented by: [id number] Potassium Phosphate 21 mmol/ (Dextrose) 507 mls @ 126.75 mls/hr IV NOW ONE Stop: 05/03/19 15:14 Last Infusion: 05/03/19 16:10 Dose: 0 mls/hr Documented by: [id number] Admin: 05/03/19 11:20 Dose: 126.8 mls/hr Documented by: [id number] Potassium Chloride (K Edwin / Wtr) 10 meq in 100 mls @ 100 mls/hr IV Q1H [facility] Stop: 05/03/19 19:59 Last Infusion: 05/03/19 21:00 Dose: 0 mls/hr Documented by: [id number] Admin: 05/03/19 19:44 Dose: 100 mls/hr Documented by: [id number] Infusion: 05/03/19 19:44 Dose: 0 mls/hr Documented by: [id number] Admin: 05/03/19 19:03 Dose: 100 mls/hr Documented by: [id number] Infusion: 05/03/19 18:40 Dose: 100 mls/hr Documented by: [id number] Admin: 05/03/19 17:40 Dose: 100 mls/hr Documented by: [id number] Infusion: 05/03/19 17:28 Dose: 100 mls/hr Documented by: [id number] Admin: 05/03/19 16:28 Dose: 100 mls/hr Documented by: [id number] Ioversol (Optiray 320 125ml) 119 ml IV ONCE PRN PRN Reason: Interaction Checking Stop: 05/07/19 07:21 Last Admin: 05/03/19 07:23 Dose: 119 ml Documented by: [id number] Lorazepam (Ativan) 2 mg SL NOW STA Stop: 05/03/19 06:49 Last Admin: 05/03/19 06:55 Dose: 2 mg Documented by: [id number] Medical Decision Making Differential Diagnosis Differential diagnosis: Etiologies such as infection, hypoglycemia, electrolyte abnormalities, cardiac sources, intracerebral event, trauma, toxicologic, neurologic, as well as others were entertained. Medical Records Attestation: I reviewed the patient's medical records. Home Medications Current Medication List: was personally reviewed by me Laboratory Data Attestation: I reviewed the patient's lab results. Result diagrams: 05/04/19 04:15 05/04/19 04:15 Lab Results 05/03/19 05/03/19 05/03/19 Range/Units 07:01 07:05 07:05 WBC 13.98 H (4.8-10.8) K/uL RBC 5.03 (4.2-5.4) M/uL Hgb 16.4 H (12.0-16.0) g/dL POC Hgb 17.7 H (12.0-16.0) g/dl Hct 43.0 (37-47) % POC Hct 52 H (37-47) % MCV 85.5 (80-100) fL MCH 32.6 (25-34) pg MCHC 38.1 H (32-36) g/dL RDW Std Deviation 42.1 (36.4-46.3) fL RDW Coeff of Remberto 13.6 (11.5-14.5) % Plt Count 72 L (130-400) K/uL MPV 11.4 H (7.4-10.4) fL Immature Gran % (Auto) 0.7 % Neut % (Auto) 85.6 % Lymph % (Auto) 7.4 % Cavalier % (Auto) 6.1 % Eos % (Auto) 0.1 % Baso % (Auto) 0.1 % Immature Gran # (Auto) 0.10 H (0.00-0.02) K/uL Neut # (Auto) 11.98 H (1.4-6.5) K/uL Lymph # (Auto) 1.03 L (1.2-3.4) K/uL Cavalier # (Auto) 0.85 H (0.11-0.59) K/uL Eos # (Auto) 0.01 (0-0.5) K/uL Baso # (Auto) 0.01 (0-0.2) K/uL Platelet Estimate Decreased L (Normal) Peripher Smr Path Cons PT 10.9 (9.0-12.0) Seconds INR 1.1 (0.9-1.1) APTT 28.1 (21.0-31.0) Seconds PTT Ratio 1.0 POC Sodium 106 L* (135-144) mEq/L Sodium (136-145) mmol/L POC Potassium 2.9 L (3.3-5.0) mEq/L Potassium (3.5-5.1) mmol/L POC Chloride 70 L (101-112) mEq/L Chloride (98-107) mmol/L Carbon Dioxide (21-32) mmol/L POC Total CO2 21 L (24-31) mEq/l Anion Gap (3-11) POC Anion Gap 19.0 (16-25) mmol/L POC BUN < 3 L (7-18) mg/dl BUN (7-18) mg/dl Creatinine (0.6-1.2) mg/dl POC Creatinine 0.2 L (0.6-1.3) mg/dl Est Cr Clr Drug Dosing ml/min Est GFR ( Amer) Est GFR (Non-Af Amer) BUN/Creatinine Ratio (10-20) Glucose (70-99) mg/dl POC Glucose (other) 180 H (70-99) mg/dl Calcium (8.5-10.1) mg/dl POC Ioniz Calcium Yovani 0.90 L (1.12-1.32) mmol/l Magnesium (1.8-2.4) mg/dl Total Bilirubin (0.2-1) mg/dl AST (15-37) U/L ALT (12-78) U/L Alkaline Phosphatase (45-117) U/L CK-MB (CK-2) (0.5-3.6) ng/ml Troponin I (0-0.045) ng/ml Total Protein (6.4-8.2) gm/dl Albumin (3.4-5.0) gm/dl Globulin (2.5-4.0) gm/dl Albumin/Globulin Ratio (0.9-2) Urine Color Urine Appearance (Clear) Urine pH (4.5-7.5) Ur Specific [place] (1.000-1.030) Urine Protein (Negative) Urine Glucose (UA) (Negative) Urine Ketones (Negative) Urine Blood (Negative) Urine Nitrite (Negative) Urine Bilirubin (Negative) Urine Urobilinogen (Negative) Ur Leukocyte Esterase (Negative) Urine WBC (Auto) (0-5) /hpf Urine RBC (Auto) (0-4) /hpf U Hyaline Cast (Auto) (0-5) /lpf U Epithel Cells (Auto) (0-5) /lpf Urine Bacteria (Auto) (Negative) Urine Osmolality (500-800) mOsm/kg Ur Random Sodium Urine Sodium mmol/L Urine Potassium mmol/L Urine Chloride mmol/L Urine Opiates Screen (Neg) Ur Methadone, Qual (Neg) Urine Barbiturates (Neg) Ur Phencyclidine (PCP) (Neg) U Amphetamin/Meth Scrn (Neg) MDMA (Ecstasy) Screen (Neg) U Benzodiazepines Scrn (Neg) Ur Cocaine Metabolite (Neg) U Marijuana (THC) Screen (Neg) 05/03/19 05/03/19 05/03/19 Range/Units 07:05 07:41 07:41 WBC (4.8-10.8) K/uL RBC (4.2-5.4) M/uL Hgb (12.0-16.0) g/dL POC Hgb (12.0-16.0) g/dl Hct (37-47) % POC Hct (37-47) % MCV (80-100) fL MCH (25-34) pg MCHC (32-36) g/dL RDW Std Deviation (36.4-46.3) fL RDW Coeff of Remberto (11.5-14.5) % Plt Count (130-400) K/uL MPV (7.4-10.4) fL Immature Gran % (Auto) % Neut % (Auto) % Lymph % (Auto) % Cavalier % (Auto) % Eos % (Auto) % Baso % (Auto) % Immature Gran # (Auto) (0.00-0.02) K/uL Neut # (Auto) (1.4-6.5) K/uL Lymph # (Auto) (1.2-3.4) K/uL Cavalier # (Auto) (0.11-0.59) K/uL Eos # (Auto) (0-0.5) K/uL Baso # (Auto) (0-0.2) K/uL Platelet Estimate (Normal) Peripher Smr Path Cons PT (9.0-12.0) Seconds INR (0.9-1.1) APTT (21.0-31.0) Seconds PTT Ratio POC Sodium (135-144) mEq/L Sodium 110 L* (136-145) mmol/L POC Potassium (3.3-5.0) mEq/L Potassium 2.9 L (3.5-5.1) mmol/L POC Chloride (101-112) mEq/L Chloride 70 L (98-107) mmol/L Carbon Dioxide 22 (21-32) mmol/L POC Total CO2 (24-31) mEq/l Anion Gap 17.0 H (3-11) POC Anion Gap (16-25) mmol/L POC BUN (7-18) mg/dl BUN 2 L (7-18) mg/dl Creatinine 0.58 L (0.6-1.2) mg/dl POC Creatinine (0.6-1.3) mg/dl Est Cr Clr Drug Dosing 116.4 ml/min Est GFR ( Amer) 116.9 Est GFR (Non-Af Amer) 100.9 BUN/Creatinine Ratio 2.8 L (10-20) Glucose 177 H (70-99) mg/dl POC Glucose (other) (70-99) mg/dl Calcium 8.0 L (8.5-10.1) mg/dl POC Ioniz Calcium Yovani (1.12-1.32) mmol/l Magnesium 1.5 L (1.8-2.4) mg/dl Total Bilirubin 1.3 H (0.2-1) mg/dl AST 67 H (15-37) U/L ALT 82 H (12-78) U/L Alkaline Phosphatase 123 H (45-117) U/L CK-MB (CK-2) 3.2 (0.5-3.6) ng/ml Troponin I < 0.015 (0-0.045) ng/ml Total Protein 7.1 (6.4-8.2) gm/dl Albumin 3.1 L (3.4-5.0) gm/dl Globulin 4.0 (2.5-4.0) gm/dl Albumin/Globulin Ratio 0.8 L (0.9-2) Urine Color Urine Appearance (Clear) Urine pH (4.5-7.5) Ur Specific [place] (1.000-1.030) Urine Protein (Negative) Urine Glucose (UA) (Negative) Urine Ketones (Negative) Urine Blood (Negative) Urine Nitrite (Negative) Urine Bilirubin (Negative) Urine Urobilinogen (Negative) Ur Leukocyte Esterase (Negative) Urine WBC (Auto) (0-5) /hpf Urine RBC (Auto) (0-4) /hpf U Hyaline Cast (Auto) (0-5) /lpf U Epithel Cells (Auto) (0-5) /lpf Urine Bacteria (Auto) (Negative) Urine Osmolality 191 L (500-800) mOsm/kg Ur Random Sodium Urine Sodium mmol/L Urine Potassium mmol/L Urine Chloride mmol/L Urine Opiates Screen Neg (Neg) Ur Methadone, Qual Neg (Neg) Urine Barbiturates Neg (Neg) Ur Phencyclidine (PCP) Neg (Neg) U Amphetamin/Meth Scrn Neg (Neg) MDMA (Ecstasy) Screen Neg (Neg) U Benzodiazepines Scrn Neg (Neg) Ur Cocaine Metabolite Neg (Neg) U Marijuana (THC) Screen Neg (Neg) 05/03/19 05/03/19 05/03/19 Range/Units 07:41 07:41 07:41 WBC (4.8-10.8) K/uL RBC (4.2-5.4) M/uL Hgb (12.0-16.0) g/dL POC Hgb (12.0-16.0) g/dl Hct (37-47) % POC Hct (37-47) % MCV (80-100) fL MCH (25-34) pg MCHC (32-36) g/dL RDW Std Deviation (36.4-46.3) fL RDW Coeff of Remberto (11.5-14.5) % Plt Count (130-400) K/uL MPV (7.4-10.4) fL Immature Gran % (Auto) % Neut % (Auto) % Lymph % (Auto) % [place]alier % (Auto) % Eos % (Auto) % Baso % (Auto) % Immature Gran # (Auto) (0.00-0.02) K/uL Neut # (Auto) (1.4-6.5) K/uL Lymph # (Auto) (1.2-3.4) K/uL [place]alier # (Auto) (0.11-0.59) K/uL Eos # (Auto) (0-0.5) K/uL Baso # (Auto) (0-0.2) K/uL Platelet Estimate (Normal) Peripher Smr Path Cons PT (9.0-12.0) Seconds INR (0.9-1.1) APTT (21.0-31.0) Seconds PTT Ratio POC Sodium (135-144) mEq/L Sodium (136-145) mmol/L POC Potassium (3.3-5.0) mEq/L Potassium (3.5-5.1) mmol/L POC Chloride (101-112) mEq/L Chloride (98-107) mmol/L Carbon Dioxide (21-32) mmol/L POC Total CO2 (24-31) mEq/l Anion Gap (3-11) POC Anion Gap (16-25) mmol/L POC BUN (7-18) mg/dl BUN (7-18) mg/dl Creatinine (0.6-1.2) mg/dl POC Creatinine (0.6-1.3) mg/dl Est Cr Clr Drug Dosing ml/min Est GFR ( Amer) Est GFR (Non-Af Amer) BUN/Creatinine Ratio (10-20) Glucose (70-99) mg/dl POC Glucose (other) (70-99) mg/dl Calcium (8.5-10.1) mg/dl POC Ioniz Calcium Yovani (1.12-1.32) mmol/l Magnesium (1.8-2.4) mg/dl Total Bilirubin (0.2-1) mg/dl AST (15-37) U/L ALT (12-78) U/L Alkaline Phosphatase (45-117) U/L CK-MB (CK-2) (0.5-3.6) ng/ml Troponin I (0-0.045) ng/ml Total Protein (6.4-8.2) gm/dl Albumin (3.4-5.0) gm/dl Globulin (2.5-4.0) gm/dl Albumin/Globulin Ratio (0.9-2) Urine Color Yellow Urine Appearance Clear (Clear) Urine pH 8.0 H (4.5-7.5) Ur Specific [place] 1.022 (1.000-1.030) Urine Protein 1+ H (Negative) Urine Glucose (UA) Trace H (Negative) Urine Ketones Trace H (Negative) Urine Blood 2+ H (Negative) Urine Nitrite Negative (Negative) Urine Bilirubin Negative (Negative) Urine Urobilinogen Negative (Negative) Ur Leukocyte Esterase Negative (Negative) Urine WBC (Auto) 0 (0-5) /hpf Urine RBC (Auto) 10-30 H (0-4) /hpf U Hyaline Cast (Auto) 1-5 (0-5) /lpf U Epithel Cells (Auto) 5-10 H (0-5) /lpf Urine Bacteria (Auto) Negative (Negative) Urine Osmolality (500-800) mOsm/kg Ur Random Sodium Cancelled Urine Sodium 32 mmol/L Urine Potassium 16.7 mmol/L Urine Chloride 28 mmol/L Urine Opiates Screen (Neg) Ur Methadone, Qual (Neg) Urine Barbiturates (Neg) Ur Phencyclidine (PCP) (Neg) U Amphetamin/Meth Scrn (Neg) MDMA (Ecstasy) Screen (Neg) U Benzodiazepines Scrn (Neg) Ur Cocaine Metabolite (Neg) U Marijuana (THC) Screen (Neg) Imaging Data Radiologist's Impression: Radiology results as stated below per my review and the radiologist's interpretation: CT angio head w con CLINICAL HISTORY: 58 years-old Female with Pt c/o AMS. Acutely altered mental status COMPARISON STUDY: CT of the head of same day TECHNIQUE: Following the IV administration of 119 cc of Optiray 320, CT angiogram of the brain was performed from the skull base to the vertex. Images are reviewed in the axial, sagittal, and coronal planes. 3-D MIPS images are created and assessed. IV contrast was administered without complication. A dose lowering technique was utilized adhering to the principles of ALARA. CT DOSE: 1112.40 mGy.cm FINDINGS: CT ANGIOGRAM OF THE BRAIN: The imaged bilateral internal carotid arteries are patent. The bilateral anterior and middle cerebral arteries are also patent. The vertebrobasilar system and posterior cerebral arteries are widely patent. There is no aneurysm, high-grade stenosis, or proximal branch occlusion identified. Dural sinuses appear patent. IMPRESSION: Unremarkable CTA of the head The above report was generated using voice recognition software. It may contain grammatical, syntax or spelling errors. Electronically signed by: Arian Hui M.D. 05/03/2019 7:[address] angio neck with con CLINICAL HISTORY: Change in mental status. Possible acute stroke. COMPARISON STUDY: No previous studies for comparison. TECHNIQUE: CT angiography was performed from the aortic arch to the skull base. MIP imaging was performed. The patient was scanned in a dynamic helical fashion during intravenous administration of 119 cc of Optiray 320. A dose lowering technique was utilized adhering to the principles of ALARA. CT DOSE: Technique: CT angiogram of the carotid and vertebral arteries was obtained using intravenous contrast and 3-D reconstruction. NASCET criteria was utilized. Findings: The right carotid revealed no evidence of aneurysm and no evidence of dissection. There is no evidence of hemodynamic significant stenosis. The left carotid revealed no evidence of hemodynamic significant stenosis. There is no evidence of aneurysm. There is no evidence of dissection. No significant abnormalities of the left vertebral artery are visualized. Evaluation the right vertebral artery is limited due to artifact from cervical spine hardware. There is an equivocal stenosis of the proximal right vertebral artery. IMPRESSION: 1. No evidence of hemodynamically significant carotid stenosis. No evidence of dissection 2. No significant abnormalities the left vertebral artery identified 3. Equivocal high-grade stenosis of the proximal right vertebral artery. Evaluation is limited due to artifact secondary to cervical spine hardware. Electronically signed by: Pedro Johnson M.D. 05/03/2019 7:[address] head/brain wo con CLINICAL HISTORY: Stroke evaluation COMPARISON STUDY: No previous studies for comparison. TECHNIQUE: Axial CT of the brain is performed from the vertex to the skull base. IV contrast was not administered for this examination. A dose lowering technique was utilized adhering to the principles of ALARA. CT DOSE: FINDINGS: No intra or extra-axial mass lesions are visualized. There is no CT evidence of acute cortical infarction. There is no evidence of midline shift. There is no acute hemorrhage. No calvarial fractures are visualized. There are patchy white matter hypodensities likely on a small vessel basis. There is no evidence of pathologic ventricular dilatation. There is no evidence of acute sinusitis Foci of increased cortical attenuation within the left frontal lobe are felt to be artifactual. IMPRESSION: No acute intracranial findings Electronically signed by: Pedro Johnson M.D. 05/03/2019 7:19 AM XR chest 1V portable HISTORY: 58 years-old Female Pt c/o AMS acutely altered mental status COMPARISON: Chest radiograph 11/20/2018, CTA of the neck 05/03/2019. TECHNIQUE: Portable AP view of the chest FINDINGS: Cardiomediastinal and hilar silhouettes are within normal limits. No pneumothorax, pleural effusion, focal airspace consolidation or overt pulmonary edema. Bones of the chest appear grossly intact. Fusion hardware of the cervical spine. IMPRESSION: No acute process. The above report was generated using voice recognition software. It may contain grammatical, syntax or spelling errors. Electronically signed by: Arian Hui M.D. 05/03/2019 8:15 AM ECG Data Attestation: I personally reviewed and interpreted this ECG as follows: Indication: altered mental status Rate (beats per minute): 99 Rhythm: normal sinus Findings: + prolonged QT; no ST depression and no ST elevation Blood Pressure Blood Pressure Findings: Elevated blood pressure Blood Pressure Disposition: further management by hospitalist DORA Narrative This is a 58-year-old female who presents emergency department after 2 seizures this morning. Upon arrival to the emergency department the patient is confused and is flailing around. She keeps ripping out IVs and will not stay in the bed. Due to this the patient had to be heavily sedated. She was given 2 mg of IM Ativan in the emergency department and given an additional 2 mg Ativan IV. Due to the sudden nature of the onset of altered mental status she was sent for an immediate CAT scan of the head. This did not show any acute intracranial abnorm ality. Patient's sodium was found to be grossly low. She was given normal saline bolus here in the emergency department. Because of the hyponatremia both critical care as well as nephrology were consulted. Nephrology recommended hypertonic saline. This was also discussed with critical care. Her potassium was repleted in the emergency department. She was admitted to the ICU and also discussed with the hospitalist. Because of the multiple seizures the patient was started on Keppra. Impression & Plan Seizure, Hyponatremia, Hypertension, Acute hypokalemia Critical Care Time Critical Care Time: Yes Total Critical Care Time: 95 I have personally spent 95 minutes of critical care time in the direct management of this patient. This includes bedside care, interpretation of diagnostic studies, and testing, discussion with consultants, patient, and family members, and other required patient management activities. This 95 minutes is in excess of all separately billable procedures. Discharge Plan Visit Data *Final* Discharge Date/Time: 05/03/19 08:50 Chief Complaint: Stroke/CVA Symptoms Stated Complaint: altered mental status ED Provider: Nomi Thao Discharge Problem: Seizure, Hyponatremia, Hypertension, Acute hypokalemia Patient Disposition: Admitted As Inpatient Discharge Instructions Interventions: ED Discharge Assessment Last Done: 05/03/19 08:50 The scribe's documentation has been prepared under my direction and personally reviewed by me in its entirety. I confirm that the note above accurately reflects all work, treatment, procedures, and medical decision making performed by me.
[2019-05-03 16:03] LABS: BUN Creatinine Ratio 3.2 (10-20); Est GFR (African American) 122.8; Est GFR (Non-African American) 105.9
[2019-05-03] MEDS: ATORVASTATIN 10 MG TAB PO SCH (20:50)
[2019-05-03] MEDS ORDERED: PHENobarbital 32.4 MG TAB PO SCH (21:00)
[2019-05-04] MEDS: DEXTROSE 5% 1,000 ML IV SCH (00:46)
[2019-05-04] MEDS: DESMOPRESSIN ACETATE 2 MCG in SODIUM CHLORIDE 0.9% 50 ML IV SCH ×3 (00:46→18:27)
[2019-05-04 04:28] LABS: Base Excess VBG 2.7 mEq/L; Oxygen Saturation VBG 83.4 %; pH VBG 7.49 (7.36-7.41)
[2019-05-04 04:47] LABS: BUN Creatinine Ratio 6.7 (10-20); Calcium 7.8 mg/dl (8.5-10.1); Creatinine Clr Calc Pharmacy 164.6 ml/min; Est GFR (African American) 131.1; Est GFR (Non-African American) 113.1; Phosphorus 1.7 mg/dl (2.5-4.9); Potassium 3.2 mmol/L (3.5-5.1)
[2019-05-04 04:51] LABS: Basophils # (auto) 0.01 K/uL (0-0.2); Basophils % (auto) 0.1 %; Eosinophils # (auto) 0.01 K/uL (0-0.5); Eosinophils % (auto) 0.1 %; Hematocrit (blood only) 40.1 % (37-47); Immature Granulocytes # (auto) 0.03 K/uL (0.00-0.02); Immature Granulocytes % (auto) 0.3 %; Lymphocytes # (auto) 1.19 K/uL (1.2-3.4); Lymphocytes % (auto) 10.1 %; Mean Corpuscular Hgb Conc 37.4 g/dL (32-36); Mean Corpuscular Volume 88.1 fL (80-100); Mean Platelet Volume 11.2 fL (7.4-10.4); Monocytes # (auto) 0.99 K/uL (0.11-0.59); Monocytes % (auto) 8.4 %; Neutrophils # (auto) 9.59 K/uL (1.4-6.5); Platelet Count 73 K/uL (130-400); Platelet Estimate Decreased (Normal); RBC Morphology Unremarkable; RDW Coefficient of Variation 13.9 % (11.5-14.5); RDW Standard Deviation 44.6 fL (36.4-46.3); Red Blood Count 4.55 M/uL (4.2-5.4); White Blood Count 11.82 K/uL (4.8-10.8)
[2019-05-04] MEDS: INSULIN ASPART 100 UNITS/ML 3 ML PEN SC SCH ×4 (06:02→21:33)
[2019-05-04] MEDS ORDERED: LORazepam 1 MG/2 ML VIAL IV PRN (08:50)
[2019-05-04 10:06] LABS: BUN Creatinine Ratio 6.7 (10-20); Calcium 7.9 mg/dl (8.5-10.1); Est GFR (African American) 139.4; Est GFR (Non-African American) 120.3; Potassium 2.9 mmol/L (3.5-5.1)
[2019-05-04] MEDS: NICOTINE 21 MG/24 HR TDSY TD SCH (10:16)
[2019-05-04] MEDS: GABAPENTIN 100 MG CAP PO SCH ×3 (10:16→21:32)
[2019-05-04] MEDS: VERAPAMIL HCL 240 MG TABCR PO SCH (10:16)
[2019-05-04] MEDS ORDERED: POTASSIUM CHLORIDE 10 MEQ TABCR PO STA (10:44)
--- NOTE | 2019-05-04 10:55 | Critical Care Progress Note ---
Date of Service May 04, 2019 Assessment & Plan (1) Admitted to intensive care unit: Neurology: The patient was admitted with hyponatremia and now the sodium is coming up. The last sodium was 120. She was also alcohol intoxicated. Currently she is more awake more alert. Initially when she was admitted she had a seizure episode. That could be related to hyponatremia. The CT of the head was done which was negative for any abnormalities. EEG was done the report is still pending. Since her electrolytes stabilizing she seems to be more awake and trying to follow simple commands. The patient also has chronic back pain and she has been on gabapentin for that and we are going to continue with that. Cardiology/vascular: The patient is hemodynamically stable on current plan of care and will be continued. EKG is consistent with normal sinus rhythm. Respiratory: On 2 L nasal cannula O2 and she is oxygenating in mid to high 90s. GI: Overall patient remains stable. I asked her if she is hungry but this is not. We will encourage her to eat. Renal: Severe hyponatremia admitted with sodium of 110. Currently is 120. Initially it went up to 121 and she was started on D5NS and the sodium is stabilizing. Also potassium was replaced and electrolytes are replaced. Hy pokalemia, hypomagnesemia, hypophosphatemia has been corrected. Will monitor very closely. ID: No issues at this time. Overall remains stable. The patient is on SCD for DVT prophylaxis. We are going to continue with current plan of care as prescribed. Her sodium will be also elevated slowly about 6 to 8 mEq within 24 hours to prevent pontine demyelination. I had a long discussion with the family. I spent 35 minutes of critical care time. (2) Hyponatremia: (3) Acute hypokalemia: (4) Electrolyte abnormality: (5) Alcohol abuse: (6) Seizure: (7) DVT prophylaxis: (8) Hypertension: Subjective History of Present Illness History of Present Illness Most of the history provided by pt's and review of medical Hx. Ms. Cleaning is a 58yo with a Hx of chronic back pain s/p surgery in November 2018, who became a chronic alcohol drinker around March when she ran out of medication. states she has periods where she doesn't drink but when she does it is usually at least 12 beers a day. States she was in her usual state of mind yesterday. Yesterday he states she said she was not feeling well. However, early this morning he noticed she was mentally altered. Called EMS, and noted her having a seizure after EMS arrived. In the ED she was noted to have severe hyponatremia and electrolyte abnormalities. Her sodium has come up to 120 today. She is more alert more awake. The patient did not have any further episodes of seizure disorder. She also did not receive any further doses of phenobarbital. The EEG was done which is still pending. The family is by the bedside. The patient is breathing comfortably and is hemodynamically stable. She also denies having any distress. Review of Systems Review of Systems: Unable to obtain in detail because of her current medical condition. Overall she denies having any chest pain or shortness of breath or abdominal pain or any nausea or vomiting. She is more alert more awake today. Physical Exam Physical Exam: Middle-aged female resting comfortably in the bed not in any acute distress. HEENT: Pupils are reactive to light and accommodation. Mouth is somewhat dry. Neck: The neck is supple. No JVD no lymphadenopathy. Chest: Bilateral air entry with clear lungs. No wheezing no crackles no rhonchi heard. Cardiac: S1-S2 heard. Regular rate and rhythm. There was no murmur or rubs or gallop. Abdomen: Soft, nontender, bowel sounds are positive. No mass felt. Extremities: No edema, no clubbing, nontender calf muscles. Skin: No rash, no lesions seen. Results & Data Vital Signs (Past 12 Hours) Vital Signs Temp Pulse BP Pulse Ox 05/04/19 06:01 98 H 96 05/04/19 06:00 98 H 159/87 H 95 05/04/19 05:02 102 H 05/04/19 05:00 142/97 H 05/04/19 04:01 106 H 146/94 H 90 05/04/19 04:00 37 C 106 H 93 05/04/19 03:01 87 93 05/04/19 03:00 88 118/74 93 05/04/19 02:00 89 118/76 96 05/04/19 01:01 104 H 95 05/04/19 01:00 104 H 154/99 H 05/04/19 00:00 36.8 C 100 H 124/94 96 05/03/19 23:11 105 H 149/99 H 93 05/03/19 23:00 105 H 171/100 H 93 Laboratory Results 05/04/19 04:15 05/04/19 08:50 Diagnostic Findings XR chest 1V portable HISTORY: 58 years-old Female Pt c/o AMS acutely altered mental status COMPARISON: Chest radiograph 11/20/2018, CTA of the neck 05/03/2019. TECHNIQUE: Portable AP view of the chest FINDINGS: Cardiomediastinal and hilar silhouettes are within normal limits. No pneumothorax, pleural effusion, focal airspace consolidation or overt pulmonary edema. Bones of the chest appear grossly intact. Fusion hardware of the cervical spine. IMPRESSION: No acute process. The above report was generated using voice recognition software. It may contain grammatical, syntax or spelling errors. Electronically signed by: Arian Hui M.D. 05/03/2019 8:15 AM PG Care Time/CCT Critical Care Time: Yes Total Critical Care Time: 35 (1) Hypertension Hypertension type: unspecified Qualified Code(s): I10 - Essential (primary) hypertension
--- NOTE | 2019-05-04 12:08 | Procedure Note ---
EEG Procedure Note Date of Service May 04, 2019 Start / End Times Start Time: 14:40 End Time: 15:[address] Olayinka Don History A 58 year old woman with seizure. EEG performed for evaluation of epileptiform activity. Home Medication List Home Medications Medication Instructions Recorded Confirmed Type acetaminophen [Tylenol Extra 1,000 mg PO TID 11/12/18 05/03/19 History Strength] atorvastatin 10 mg PO HS 05/03/19 05/03/19 History clonazepam 1.5 mg PO HS PRN 05/03/19 05/03/19 History gabapentin 200 mg PO TID 05/03/19 05/03/19 History tramadol 100 mg PO QID PRN 05/03/19 05/03/19 History verapamil 240 mg PO PM 05/03/19 05/03/19 History Inpatient Medication List Atorvastatin Calcium (Lipitor) 10 mg PO HS [facility] Stop: 06/02/19 20:59 Last Admin: 05/03/19 20:50 Dose: Not Given Documented by: [id number] Gabapentin (Neurontin) 200 mg PO TID [facility] Stop: 06/02/19 09:29 Last Admin: 05/04/19 10:16 Dose: 200 mg Documented by: [id number] Admin: 05/03/19 20:50 Dose: Not Given Documented by: [id number] Admin: 05/03/19 14:20 Dose: Not Given Documented by: [id number] Admin: 05/03/19 10:09 Dose: Not Given Documented by: [id number] Desmopressin Acetate 2 mcg/ (Sodium Chloride) 50.5 mls @ 100 mls/hr IV Q8H [facility] Stop: 05/05/19 01:31 Last Infusion: 05/04/19 09:59 Dose: 0 mls/hr Documented by: [id number] Admin: 05/04/19 09:13 Dose: 100 mls/hr Documented by: [id number] Infusion: 05/04/19 01:25 Dose: 0 mls/hr Documented by: [id number] Admin: 05/04/19 00:46 Dose: 100 mls/hr Documented by: [id number] Infusion: 05/03/19 17:19 Dose: 0 mls/hr Documented by: [id number] Admin: 05/03/19 16:29 Dose: 100 mls/hr Documented by: [id number] Infusion: 05/03/19 10:19 Dose: 0 mls/hr Documented by: [id number] Admin: 05/03/19 09:37 Dose: 100 mls/hr Documented by: [id number] Dextrose (D5w) 1,000 mls @ 70 mls/hr IV .[id number] [facility] Stop: 06/02/19 10:59 Last Admin: 05/04/19 00:46 Dose: 70 mls/hr Documented by: [id number] Infusion: 05/04/19 00:46 Dose: 0 mls/hr Documented by: [id number] Admin: 05/03/19 10:58 Dose: 70 mls/hr Documented by: [id number] Insulin Aspart (Novolog Flexpen) 0 units SC Q6 [facility] Stop: 06/02/19 11:59 Last Admin: 05/04/19 06:02 Dose: Not Given Documented by: [id number] Cosigned by: [id number] Admin: 05/03/19 23:56 Dose: Not Given Documented by: [id number] Cosigned by: [id number] Admin: 05/03/19 18:25 Dose: Not Given Documented by: [id number] Cosigned by: [id number] Admin: 05/03/19 12:26 Dose: Not Given Documented by: [id number] Cosigned by: [id number] Nicotine (Nicoderm Cq) 21 mg TD DAILY [facility] Stop: 06/03/19 09:14 Last Admin: 05/04/19 10:16 Dose: 21 mg Documented by: [id number] Verapamil HCl (Calan Sr) 240 mg PO QAM [facility] Stop: 06/02/19 09:29 Last Admin: 05/04/19 10:16 Dose: 240 mg Documented by: [id number] Admin: 05/03/19 10:09 Dose: Not Given Documented by: [id number] Discontinued Medications Acetaminophen (Tylenol) Confirm Administered Dose 650 mg .ROUTE .STK-MED ONE Stop: 05/03/19 13:36 Last Admin: 05/03/19 14:20 Dose: 650 mg Documented by: [id number] Levetiracetam 1,000 mg/ (Dextrose) 110 mls @ 440 mls/hr IV NOW STA Stop: 05/03/19 07:31 Last Infusion: 05/03/19 07:47 Dose: 0 mls/hr Documented by: [id number] Admin: 05/03/19 07:30 Dose: 440 mls/hr Documented by: [id number] Levetiracetam 1,000 mg/ (Dextrose) 110 mls @ 440 mls/hr IV NOW STA Stop: 05/03/19 07:35 Last Admin: 05/03/19 07:30 Dose: Not Given Documented by: [id number] Magnesium Sulfate/Dextrose (Magnesium Sulfate / D5w) 1 gm in 100 mls @ 100 mls/hr IV ONE ONE Stop: 05/03/19 08:22 Last Infusion: 05/03/19 09:32 Dose: 0 mls/hr Documented by: [id number] Admin: 05/03/19 07:30 Dose: 100 mls/hr Documented by: [id number] Potassium Chloride (K Edwin / Wtr) 10 meq in 100 mls @ 100 mls/hr IV Q1H [facility] Stop: 05/03/19 09:29 Last Infusion: 05/03/19 10:57 Dose: 0 mls/hr Documented by: [id number] Admin: 05/03/19 09:31 Dose: 100 mls/hr Documented by: [id number] Infusion: 05/03/19 09:12 Dose: 0 mls/hr Documented by: [id number] Admin: 05/03/19 07:34 Dose: 100 mls/hr Documented by: [id number] Sodium Chloride (Nss 1000ml) 1,000 mls @ 999 mls/hr IV .Q1H1M ONE Stop: 05/03/19 08:29 Last Infusion: 05/03/19 08:04 Dose: 0 mls/hr Documented by: [id number] Admin: 05/03/19 07:35 Dose: 999 mls/hr Documented by: [id number] Sodium Chloride (Hypertonic Saline 3%) 500 mls @ 50 mls/min IV .Q10M [facility]; Protocol Stop: 05/03/19 08:01 Last Infusion: 05/03/19 10:00 Dose: 0 mls/min Documented by: [id number] Admin: 05/03/19 08:01 Dose: 50 mls/min Documented by: [id number] Parenteral Electrolytes (Normosol-R) 1,000 mls @ 100 mls/hr IV .Q10H [facility] Stop: 06/02/19 09:59 Last Infusion: 05/03/19 10:58 Dose: 0 mls/hr Documented by: [id number] Infusion: 05/03/19 10:57 Dose: 0 mls/hr Documented by: [id number] Admin: 05/03/19 09:57 Dose: 100 mls/hr Documented by: [id number] Phenobarbital Sodium 160 mg/ (Syringe) 1.2308 mls @ 0 mls/min IM Q3H [facility] Stop: 05/03/19 16:01 Last Admin: 05/03/19 16:28 Dose: 160 mls/min Documented by: [id number] Admin: 05/03/19 13:28 Dose: 160 mls/min Documented by: [id number] Potassium Phosphate 27 mmol/ (Sodium Chloride) 509 mls @ 101.8 mls/hr IV NOW ONE Stop: 05/03/19 14:59 Last Infusion: 05/03/19 11:21 Dose: 0 mls/hr Documented by: [id number] Admin: 05/03/19 10:05 Dose: 101.8 mls/hr Documented by: [id number] Potassium Phosphate 21 mmol/ (Dextrose) 507 mls @ 126.75 mls/hr IV NOW ONE Stop: 05/03/19 15:14 Last Infusion: 05/03/19 16:10 Dose: 0 mls/hr Documented by: [id number] Admin: 05/03/19 11:20 Dose: 126.8 mls/hr Documented by: [id number] Potassium Chloride (K Edwin / Wtr) 10 meq in 100 mls @ 100 mls/hr IV Q1H [facility] Stop: 05/03/19 19:59 Last Infusion: 05/03/19 21:00 Dose: 0 mls/hr Documented by: [id number] Admin: 05/03/19 19:44 Dose: 100 mls/hr Documented by: [id number] Infusion: 05/03/19 19:44 Dose: 0 mls/hr Documented by: [id number] Admin: 05/03/19 19:03 Dose: 100 mls/hr Documented by: [id number] Infusion: 05/03/19 18:40 Dose: 100 mls/hr Documented by: [id number] Admin: 05/03/19 17:40 Dose: 100 mls/hr Documented by: [id number] Infusion: 05/03/19 17:28 Dose: 100 mls/hr Documented by: [id number] Admin: 05/03/19 16:28 Dose: 100 mls/hr Documented by: [id number] Ioversol (Optiray 320 125ml) 119 ml IV ONCE PRN PRN Reason: Interaction Checking Stop: 05/07/19 07:21 Last Admin: 05/03/19 07:23 Dose: 119 ml Documented by: [id number] Lorazepam (Ativan) 2 mg SL NOW STA Stop: 05/03/19 06:49 Last Admin: 05/03/19 06:55 Dose: 2 mg Documented by: [id number] Lorazepam (Ativan) 2 mg IM NOW STA Stop: 05/03/19 06:51 Last Admin: 05/04/19 10:00 Dose: Not Given Documented by: [id number] Lorazepam (Ativan) Confirm Administered Dose 1 mg .ROUTE .STK-MED ONE Stop: 05/03/19 06:50 Last Admin: 05/04/19 11:19 Dose: Not Given Documented by: [id number] Lorazepam (Ativan) Confirm Administered Dose 1 mg .ROUTE .STK-MED ONE Stop: 05/03/19 06:50 Last Admin: 05/04/19 11:19 Dose: Not Given Documented by: [id number] Lorazepam (Ativan) Confirm Administered Dose 2 mg .ROUTE .STK-MED ONE Stop: 05/03/19 06:54 Last Admin: 05/04/19 11:19 Dose: Not Given Documented by: [id number] Lorazepam (Ativan) Confirm Administered Dose 2 mg .ROUTE .STK-MED ONE Stop: 05/03/19 06:59 Last Admin: 05/04/19 11:19 Dose: Not Given Documented by: [id number] Phenobarbital (Phenobarbital) 64.8 mg PO BID [facility] Stop: 05/04/19 09:01 Last Admin: 05/03/19 20:50 Dose: Not Given Documented by: [id number] Description This is a 21 electrode EEG with a single channel dedicated to limited EKG. The electrodes were placed in accordance with the International 10-20 system. REPORT: At the onset of the EEG the patient is asleep. The psoterior dominant rhythm is not seen. Instead the background activity is symmetric with 3-5 Hz theta-delta activity with intermixed 15-20 beta activity. Stage II sleep is characterized by sleep spindles and vertex waves. IMPRESSION: This is a normal asleep routine EEG. Excessive beta activity is a normal variant and can be seen as a medication side effect, ie benzodiazepines and barbiturates. No epileptiform activity is recorded.
[2019-05-04 13:21] LABS: BUN Creatinine Ratio 8.8 (10-20); Calcium 7.6 mg/dl (8.5-10.1); Est GFR (African American) 139.4; Est GFR (Non-African American) 120.3; Potassium 2.8 mmol/L (3.5-5.1)
[2019-05-04] MEDS: SODIUM CHLORIDE 0.9% 1000ML 1,000 ML IV SCH (13:30)
[2019-05-04] MEDS ORDERED: POTASSIUM PHOSPHATE 24 MMOL in DEXTROSE 5% 500 ML IV ONE (13:45)
[2019-05-04] MEDS ORDERED: POTASSIUM CHLORIDE 10 MEQ TABCR PO ONE (14:15)
[2019-05-04] MEDS: ALBUT/IPRATROP 3MG/0.5MG NEB 3 ML VIAL NEB SCH ×2 (15:15→19:19)
[2019-05-04 17:45] LABS: BUN Creatinine Ratio 7.4 (10-20); Calcium 7.8 mg/dl (8.5-10.1); Creatinine Clr Calc Pharmacy 167.4 ml/min; Est GFR (African American) 133.2; Potassium 3.4 mmol/L (3.5-5.1)
--- NOTE | 2019-05-04 19:20 | Hospitalist Progress Note ---
Date of Service May 04, 2019 Assessment & Plan (1) Hyponatremia: Na within goal range for 24 hours with use os DDAVP. Now on IVF and starting to improve clinically. Cont ICU management. (2) Alcohol withdrawal delirium: Phenobarbital given yesterday, cont gabapentin today with Ativan PRN (3) Seizure: Likely 2/2 Tramadol use in the setting of severe hyponatremia (110) and recent cessation of heavy alcohol use (alcohol withdrawal). (4) Smoker: Smoking cessation advised. (5) Alcohol abuse: As above. (6) DVT prophylaxis: SCDs/recommend start chemoprophylaxis when able but defer to Environmental Engineering Aide. Full Code [facility]po-cont [facility] Subjective Lethargic -denies pain Doesn't remember much from yesterday ROS is limited in the setting of lethargy Review of Systems Review of Systems: Unobtainable due to cognitive status Physical Exam Physical Exam: CONSTITUTIONAL: WNWD, vitals as above, generally lethargic EYES: normal conjunctivae, no scleral icterus ENT: MMM RESPIRATORY: clear to auscultation bilaterally, no crackles, rales or wheezes, normal respiratory effort CARDIOVASCULAR: regular rate and rhythm, S1 and 2 heard without murmurs, gallops or rubs, no JVD, no peripheral edema GASTROINTESTINAL: normal bowel sounds, soft, nontender, nondistended MUSCULOSKELETAL: could not assess well 2/2 lethargy, moves all extremities equally SKIN: warm and dry, bruising on hands present NEUROLOGIC: lethargic Results & Data Vital Signs (Past 12 Hours) Vital Signs Temp Pulse Pulse Resp BP Pulse Ox 05/04/19 17:00 72 15 104/69 94 05/04/19 16:00 36.7 C 85 20 135/76 89 L 05/04/19 15:19 71 17 93 05/04/19 15:00 74 14 128/76 91 05/04/19 14:00 81 19 135/67 93 05/04/19 13:00 89 15 132/78 93 05/04/19 12:00 37.2 C 112 H 27 H 143/72 H 91 05/04/19 11:00 96 H 17 156/97 H 90 05/04/19 10:00 100 H 13 173/98 H 94 05/04/19 09:00 102 H 183/95 H 95 05/04/19 08:00 37.0 C 86 117/73 96 Laboratory Results Short CBC 05/04/19 Range/Units 04:15 WBC 11.82 H (4.8-10.8) K/uL Hgb 15.0 (12.0-16.0) g/dL Hct 40.1 (37-47) % Plt Count 73 L (130-400) K/uL BMP 05/04/19 05/04/19 05/04/19 04:15 08:50 12:27 Sodium 118 L* 120 L 118 L* Potassium 3.2 L 2.9 L 2.8 L Chloride 83 L 84 L 83 L Carbon Dioxide 26 28 27 BUN 3 L 2 L 3 L Creatinine 0.41 L 0.34 L 0.34 L Glucose 100 H 98 112 H Calcium 7.8 L 7.9 L 7.6 L 05/04/19 16:41 Sodium 119 L* Potassium 3.4 L D Chloride 83 L Carbon Dioxide 29 BUN 3 L Creatinine 0.39 L Glucose 107 H Calcium 7.8 L Medications Administered Current Inpatient Medications Acetaminophen (Tylenol) 650 mg PO Q6H PRN PRN Reason: Pain or Fever Stop: 06/03/19 18:38 Albuterol (Duoneb) 3 ml INH Q4H PRN PRN Reason: Dyspnea Stop: 06/02/19 09:08 Albuterol (Duoneb) 3 ml NEB QIDR [facility] Stop: 06/03/19 15:59 Last Admin: 05/04/19 19:19 Dose: 3 ml Documented by: Atorvastatin Calcium (Lipitor) 10 mg PO HS [facility] Stop: 06/02/19 20:59 Last Admin: 05/03/19 20:50 Dose: Not Given Documented by: Dextrose (Dextrose 50%) 25 - 50 ml IV UD PRN; Protocol PRN Reason: Hypoglycemia Protocol Stop: 06/02/19 09:08 Gabapentin (Neurontin) 200 mg PO TID [facility] Stop: 06/02/19 09:29 Last Admin: 05/04/19 13:33 Dose: 200 mg Documented by: Glucagon (Glucagen) 1 mg SQ UD PRN; Protocol PRN Reason: Hypoglycemia Protocol Stop: 06/02/19 09:08 Glucose (Glucose 40%) 15 - 30 gm PO UD PRN; Protocol PRN Reason: Hypoglycemia Protocol Stop: 06/02/19 09:08 Glucose (Dex4 Glucose) 4 - 8 tabs PO UD PRN; Protocol PRN Reason: Hypoglycemia Protocol Stop: 06/02/19 09:08 Desmopressin Acetate 2 mcg/ (Sodium Chloride) 50.5 mls @ 100 mls/hr IV Q8H [facility] Stop: 05/05/19 01:31 Last Infusion: 05/04/19 19:04 Dose: Infused Documented by: Lorazepam (Ativan) 1 mg in 2 mls @ 2 mls/min IV ONE PRN; Protocol PRN Reason: EtoH Withdrawal AWSS 6-10 Stop: 06/03/19 08:49 Sodium Chloride (Nss 1000ml) 1,000 mls @ 75 mls/hr IV .[id number] [facility] Stop: 06/03/19 13:29 Last Admin: 05/04/19 13:30 Dose: 75 mls/hr Documented by: Insulin Aspart (Novolog Flexpen) 0 units SC ACHS [facility] Stop: 06/03/19 16:59 Last Admin: 05/04/19 17:41 Dose: Not Given Documented by: Miscellaneous (Icu Protocol For Hyperglycemia) 1 ea N/A PRN PRN; Protocol PRN Reason: Hyperglycemia Protocol Stop: 05/05/19 09:08 Miscellaneous (Carbohydrates For Hypoglycemia) 15 - 30 gm PO UD PRN PRN Reason: Hypoglycemia Treatment Stop: 06/02/19 09:08 Miscellaneous (Remove Nicoderm Patch) 1 ea N/A HS [facility] Stop: 06/03/19 20:59 Nicotine (Nicoderm Cq) 21 mg TD DAILY [facility] Stop: 06/03/19 09:14 Last Admin: 05/04/19 10:16 Dose: 21 mg Documented by: Verapamil HCl (Calan Sr) 240 mg PO QAM [facility] Stop: 06/02/19 09:29 Last Admin: 05/04/19 10:16 Dose: 240 mg Documented by:
[2019-05-04] MEDS: ACETAMINOPHEN 325 MG TAB PO PRN (19:33)
[2019-05-04] MEDS ORDERED: PHENobarbital 32.4 MG TAB PO SCH (21:00)
[2019-05-04 21:13] LABS: BUN Creatinine Ratio 6.7 (10-20); Creatinine Clr Calc Pharmacy 176.4 ml/min; Est GFR (African American) 135.6; Potassium 3.8 mmol/L (3.5-5.1)
[2019-05-04] MEDS: ATORVASTATIN 10 MG TAB PO SCH (21:32)
[2019-05-05] MEDS: DESMOPRESSIN ACETATE 2 MCG in SODIUM CHLORIDE 0.9% 50 ML IV SCH ×3 (01:07→23:13)
[2019-05-05] MEDS: SODIUM CHLORIDE 0.9% 1000ML 1,000 ML IV SCH (03:00)
[2019-05-05 05:05] LABS: Hemoglobin 14.6 g/dL (12.0-16.0); Mean Corpuscular Hgb Conc 36.5 g/dL (32-36); Mean Corpuscular Volume 89.3 fL (80-100); RDW Standard Deviation 45.7 fL (36.4-46.3); Red Blood Count 4.48 M/uL (4.2-5.4); White Blood Count 11.06 K/uL (4.8-10.8)
[2019-05-05 05:07] LABS: Mean Platelet Volume 10.4 fL (7.4-10.4); Platelet Count 80 K/uL (130-400)
[2019-05-05 05:32] LABS: Albumin Level 2.8 gm/dl (3.4-5.0); Bilirubin Direct 0.4 mg/dl (0-0.2); Bilirubin,Total 1.4 mg/dl (0.2-1); Magnesium 1.9 mg/dl (1.8-2.4); Total Protein 6.4 gm/dl (6.4-8.2)
[2019-05-05 06:02] LABS: Eosinophils # (auto) 0.04 K/uL (0-0.5); Eosinophils % (auto) 0.4 %; Immature Granulocytes # (auto) 0.03 K/uL (0.00-0.02); Immature Granulocytes % (auto) 0.3 %; Lymphocytes # (auto) 1.08 K/uL (1.2-3.4); Lymphocytes % (auto) 9.8 %; Monocytes # (auto) 1.04 K/uL (0.11-0.59); Monocytes % (auto) 9.4 %; Neutrophils # (auto) 8.87 K/uL (1.4-6.5); Neutrophils % (auto) 80.1 %
[2019-05-05] MEDS: ALBUT/IPRATROP 3MG/0.5MG NEB 3 ML VIAL NEB SCH ×4 (07:08→19:19)
[2019-05-05] MEDS: GABAPENTIN 100 MG CAP PO SCH ×3 (07:43→20:09)
[2019-05-05] MEDS: NICOTINE 21 MG/24 HR TDSY TD SCH (07:43)
[2019-05-05] MEDS: VERAPAMIL HCL 240 MG TABCR PO SCH (07:43)
[2019-05-05] MEDS: INSULIN ASPART 100 UNITS/ML 3 ML PEN SC SCH ×4 (07:44→20:11)
[2019-05-05 09:27] LABS: BUN Creatinine Ratio 5.6 (10-20); Calcium 7.9 mg/dl (8.5-10.1); Creatinine Clr Calc Pharmacy 145.1 ml/min; Est GFR (African American) 127.1; Est GFR (Non-African American) 109.7
[2019-05-05] MEDS ORDERED: POTASSIUM CHLORIDE 10 MEQ TABCR PO ONE (09:34)
--- NOTE | 2019-05-05 09:50 | Critical Care Progress Note ---
Date of Service May 05, 2019 Assessment & Plan (1) Admitted to intensive care unit: Neurology: The patient was admitted with hyponatremia and now the sodium is coming up. The last sodium was 120. She was also alcohol intoxicated. Currently she is more awake more alert. Initially when she was admitted she had a seizure episode. That could be related to hyponatremia. The CT of the head was done which was negative for any abnormalities. EEG was done the report is still pending. Since her electrolytes stabilizing she seems to be more awake and and alert and follow simple commands. The patient also has chronic back pain and she has been on gabapentin for that and we are going to continue with that. The patient had EEG and that was reported as:IMPRESSION: This is a normal asleep routine EEG. Excessive beta activity is a normal variant and can be seen as a medication side effect, ie benzodiazepines and barbiturates. No epileptiform activity is recorded. Cardiology/vascular: The patient is hemodynamically stable on current plan of care and will be continued. EKG is consistent with normal sinus rhythm. Respiratory: On 2 L nasal cannula O2 and she is oxygenating in mid to high 90s. GI: Overall patient remains stable. I asked her if she is hungry but this is not. We will encourage her to eat. Renal: Severe hyponatremia admitted with sodium of 110. Currently is 121. Also potassium was replaced and electrolytes are replaced. Hypokalemia, hypomagnesemia, hypophosphatemia has been corrected. Will monitor very closely. Currently patient remains on normal saline at 75 cc an hour and also we are going to replace with 40 of K. Dur p.o. because her potassium is only 3. Overall she seems to be stable mentally and physically. ID: No issues at this time. I have discussed with the family at length. I have spent greater than 35 minutes of critical care time. (2) Hyponatremia: (3) Acute hypokalemia: (4) Alcohol abuse: (5) Smoker: (6) Thrombocytopenia: (7) Electrolyte abnormality: (8) Seizure: Subjective The patient was seen and examined by me. This is a 58-year-old female who was admitted with hyponatremia. The patient was started on 3% sodium and her sodium went up within 6 hours to 121 so it was cut back on that and the fluid was changed to D5W. Throughout the day yesterday the sodium remained 118. The patient was started on normal saline at 75 cc an hour. This morning her sodium is 121 so it is appropriately going up slowly. The patient is more awake more alert responds appropriately not in any acute distress and denies having any headache dizziness or syncopal episode. She also denies having any chest pain or palpitations. Does not have any shortness of breath wheezing orthopnea or paroxysmal nocturnal dyspnea. Patient also denies having any abdominal pain nausea vomiting. Also denies having any blood in her stool urine no painful micturition. She is also chronic smoker and she was started on NicoDerm patch and overall she seems to be comfortable not any acute distress and not also withdrawing from alcohol. Review of Systems Review of Systems: The patient denies having any headache dizziness or syncopal episode. Does not have any shortness of breath. No chest pain. Also denies having any abdominal pain nausea vomiting. No blood in the stool urine or painful micturition. Does not have any swollen extremities. No skin rash no lesions. Physical Exam Physical Exam: Middle-aged female resting comfortably in the bed not in any acute distress. The patient is more alert more awake and responds appropriately and follows simple commands. HEENT: Pupils are reactive to light and accommodation. Mouth is somewhat dry. Neck: The neck is supple. No JVD no lymphadenopathy. Chest: Bilateral air entry with clear lungs. No wheezing no crackles no rhonchi heard. Cardiac: S1-S2 heard. Regular rate and rhythm. There was no murmur or rubs or gallop. Abdomen: Soft, nontender, bowel sounds are positive. No mass felt. Extremities: No edema, no clubbing, nontender calf muscles. Skin: No rash, no lesions seen. Neuro: The patient is resting comfortably she is alert awake her pupils are reactive to light. She is also following simple commands and moving all extremities and at this stage no neurological deficit. No evidence of seizure disorder. Results & Data Vital Signs (Past 12 Hours) Vital Signs Temp Pulse Pulse Resp BP Pulse Ox 05/05/19 09:00 101 H 18 159/85 H 93 05/05/19 08:00 108 H 15 153/87 H 95 05/05/19 07:11 106 H 18 96 05/05/19 07:00 36.9 C 103 H 20 182/86 H 91 05/05/19 06:00 107 H 17 179/133 H 92 05/05/19 05:00 98 H 15 160/120 H 92 05/05/19 04:00 36.8 C 111 H 18 161/110 H 91 05/05/19 03:00 102 H 17 171/137 H 91 05/05/19 02:00 95 H 16 173/103 H 92 05/05/19 01:00 84 14 141/77 H 91 05/05/19 00:01 36.7 C 87 18 164/123 H 93 05/04/19 23:28 90 05/04/19 23:01 88 15 114/87 95 05/04/19 22:00 86 17 149/83 H 95 Laboratory Results Abnormal lab results 05/04/19 05/04/19 05/04/19 Range/Units 08:50 11:34 12:27 WBC (4.8-10.8) K/uL MCHC (32-36) g/dL Plt Count (130-400) K/uL Immature Gran # (Auto) (0.00-0.02) K/uL Neut # (Auto) (1.4-6.5) K/uL Lymph # (Auto) (1.2-3.4) K/uL [place] # (Auto) (0.11-0.59) K/uL Sodium 120 L 118 L* (136-145) mmol/L Potassium 2.9 L 2.8 L (3.5-5.1) mmol/L Chloride 84 L 83 L (98-107) mmol/L BUN 2 L 3 L (7-18) mg/dl Creatinine 0.34 L 0.34 L (0.6-1.2) mg/dl BUN/Creatinine Ratio 6.7 L 8.8 L (10-20) Glucose 112 H (70-99) mg/dl POC Glucose 111 H (70-99) Calcium 7.9 L 7.6 L (8.5-10.1) mg/dl Ionized Calcium (1.12-1.32) mmol/L Phosphorus (2.5-4.9) mg/dl Total Bilirubin (0.2-1) mg/dl Direct Bilirubin (0-0.2) mg/dl AST (15-37) U/L Alkaline Phosphatase (45-117) U/L Albumin (3.4-5.0) gm/dl 05/04/19 05/04/19 05/04/19 Range/Units 16:41 17:25 20:47 WBC (4.8-10.8) K/uL MCHC (32-36) g/dL Plt Count (130-400) K/uL Immature Gran # (Auto) (0.00-0.02) K/uL Neut # (Auto) (1.4-6.5) K/uL Lymph # (Auto) (1.2-3.4) K/uL [place] # (Auto) (0.11-0.59) K/uL Sodium 119 L* 121 L (136-145) mmol/L Potassium 3.4 L D (3.5-5.1) mmol/L Chloride 83 L 86 L (98-107) mmol/L BUN 3 L 3 L (7-18) mg/dl Creatinine 0.39 L 0.37 L (0.6-1.2) mg/dl BUN/Creatinine Ratio 7.4 L 6.7 L (10-20) Glucose 107 H 103 H (70-99) mg/dl POC Glucose 126 H (70-99) Calcium 7.8 L 8.0 L (8.5-10.1) mg/dl Ionized Calcium (1.12-1.32) mmol/L Phosphorus (2.5-4.9) mg/dl Total Bilirubin (0.2-1) mg/dl Direct Bilirubin (0-0.2) mg/dl AST (15-37) U/L Alkaline Phosphatase (45-117) U/L Albumin (3.4-5.0) gm/dl 05/05/19 05/05/19 05/05/19 Range/Units 04:27 04:27 04:27 WBC 11.06 H (4.8-10.8) K/uL MCHC 36.5 H (32-36) g/dL Plt Count 80 L (130-400) K/uL Immature Gran # (Auto) 0.03 H (0.00-0.02) K/uL Neut # (Auto) 8.87 H (1.4-6.5) K/uL Lymph # (Auto) 1.08 L (1.2-3.4) K/uL [place] # (Auto) 1.04 H (0.11-0.59) K/uL Sodium (136-145) mmol/L Potassium (3.5-5.1) mmol/L Chloride (98-107) mmol/L BUN (7-18) mg/dl Creatinine (0.6-1.2) mg/dl BUN/Creatinine Ratio (10-20) Glucose (70-99) mg/dl POC Glucose (70-99) Calcium (8.5-10.1) mg/dl Ionized Calcium 1.00 L (1.12-1.32) mmol/L Phosphorus 2.0 L (2.5-4.9) mg/dl Total Bilirubin 1.4 H (0.2-1) mg/dl Direct Bilirubin 0.4 H (0-0.2) mg/dl AST 118 H (15-37) U/L Alkaline Phosphatase 152 H (45-117) U/L Albumin 2.8 L (3.4-5.0) gm/dl 05/05/19 05/05/19 Range/Units 07:22 08:37 WBC (4.8-10.8) K/uL MCHC (32-36) g/dL Plt Count (130-400) K/uL Immature Gran # (Auto) (0.00-0.02) K/uL Neut # (Auto) (1.4-6.5) K/uL Lymph # (Auto) (1.2-3.4) K/uL [place] # (Auto) (0.11-0.59) K/uL Sodium 121 L (136-145) mmol/L Potassium 3.0 L D (3.5-5.1) mmol/L Chloride 88 L (98-107) mmol/L BUN 3 L (7-18) mg/dl Creatinine 0.45 L (0.6-1.2) mg/dl BUN/Creatinine Ratio 5.6 L (10-20) Glucose 140 H (70-99) mg/dl POC Glucose 104 H (70-99) Calcium 7.9 L (8.5-10.1) mg/dl Ionized Calcium (1.12-1.32) mmol/L Phosphorus (2.5-4.9) mg/dl Total Bilirubin (0.2-1) mg/dl Direct Bilirubin (0-0.2) mg/dl AST (15-37) U/L Alkaline Phosphatase (45-117) U/L Albumin (3.4-5.0) gm/dl Medications Administered Current Inpatient Medications Acetaminophen (Tylenol) 650 mg PO Q6H PRN PRN Reason: Pain or Fever Stop: 06/03/19 18:38 Last Admin: 05/04/19 19:33 Dose: 650 mg Documented by: Albuterol (Duoneb) 3 ml INH Q4H PRN PRN Reason: Dyspnea Stop: 06/02/19 09:08 Albuterol (Duoneb) 3 ml NEB QIDR [facility]AS[facility] Stop: 06/03/19 15:59 Last Admin: 05/05/19 07:08 Dose: 3 ml Documented by: Atorvastatin Calcium (Lipitor) 10 mg PO HS [facility] Stop: 06/02/19 20:59 Last Admin: 05/04/19 21:32 Dose: 10 mg Documented by: Dextrose (Dextrose 50%) 25 - 50 ml IV UD PRN; Protocol PRN Reason: Hypoglycemia Protocol Stop: 06/02/19 09:08 Gabapentin (Neurontin) 200 mg PO TID [facility] Stop: 06/02/19 09:29 Last Admin: 05/05/19 07:43 Dose: 200 mg Documented by: Glucagon (Glucagen) 1 mg SQ UD PRN; Protocol PRN Reason: Hypoglycemia Protocol Stop: 06/02/19 09:08 Glucose (Glucose 40%) 15 - 30 gm PO UD PRN; Protocol PRN Reason: Hypoglycemia Protocol Stop: 06/02/19 09:08 Glucose (Dex4 Glucose) 4 - 8 tabs PO UD PRN; Protocol PRN Reason: Hypoglycemia Protocol Stop: 06/02/19 09:08 Lorazepam (Ativan) 1 mg in 2 mls @ 2 mls/min IV ONE PRN; Protocol PRN Reason: EtoH Withdrawal AWSS 6-10 Stop: 06/03/19 08:49 Sodium Chloride (Nss 1000ml) 1,000 mls @ 75 mls/hr IV .[id number] [facility] Stop: 06/03/19 13:29 Last Admin: 05/05/19 03:00 Dose: 75 mls/hr Documented by: Insulin Aspart (Novolog Flexpen) 0 units SC ACHS [facility] Stop: 06/03/19 16:59 Last Admin: 05/05/19 07:44 Dose: Not Given Documented by: Miscellaneous (Carbohydrates For Hypoglycemia) 15 - 30 gm PO UD PRN PRN Reason: Hypoglycemia Treatment Stop: 06/02/19 09:08 Miscellaneous (Remove Nicoderm Patch) 1 ea N/A HS [facility] Stop: 06/03/19 20:59 Last Admin: 05/04/19 21:33 Dose: Not Given Documented by: Nicotine (Nicoderm Cq) 21 mg TD DAILY [facility] Stop: 06/03/19 09:14 Last Admin: 05/05/19 07:43 Dose: 21 mg Documented by: Verapamil HCl (Calan Sr) 240 mg PO QAM [facility] Stop: 06/02/19 09:29 Last Admin: 05/05/19 07:43 Dose: 240 mg Documented by: PG Care Time/CCT Critical Care Time: Yes Total Critical Care Time: 35
--- NOTE | 2019-05-05 14:27 | Hospitalist Progress Note ---
Date of Service May 05, 2019 Assessment & Plan (1) Hyponatremia: Presented with severe hyponatremia 110 causing seizure in setting of alcohol withdrawal Urine output >2 L on admission, DDAVP administered. Continues to have significantly high urinary output- 2 L in 2 hours raising concern for Diabetes Insipidus -Now on IVF at 75 cc/hour -Monitor BMP q 4 hours -Consult nephrology (2) Alcohol withdrawal delirium: Received phenobarbital on 05/04/2019. -Continue with gabapentin protocol and Ativan as needed (3) Seizure: Likely secondary to severe hyponatremia (110) and recent cessation of heavy alcohol use (alcohol withdrawal). -CT head- neg, EEG -normal sleep routine EEG, excessive beta activity is a normal variant and can be seen as medication side effect. No epileptiform activity is recorded. (4) Hypokalemia: (5) Smoker: Smoking cessation advised. (6) Alcohol abuse: As above. -Counseling done (7) DVT prophylaxis: SCDs Full Code Dispo- Okay to transfer to [facility] with telemetry. Discussed case with crime lab technician. Updated by bedside. Subjective Patient is feeling much better. Denies any abdominal pain, nausea, vomiting, fever, chills. Patient continues to have significant urinary output. Almost around 2 L in 2 hours Physical Exam Physical Exam: GENERAL- AAOX3, No acute distress LUNGS- Air entry bilaterally equal. No rales, rhonchi, crackles, wheezes heard. HEART- Regular rate and rhythm. No murmurs ABDOMEN- Soft, non tender, non distended, Bowel sounds heard. EXTREMITIES- Good peripheral pulses, no edema NEUROMUSCULAR- AAOX3, Grossly no focal deficits Results & Data Vital Signs (Past 12 Hours) Vital Signs Temp Pulse Pulse Resp BP Pulse Ox 05/05/19 13:00 96 H 16 134/101 H 94 05/05/19 12:00 36.9 C 105 H 23 155/83 H 93 05/05/19 11:15 93 H 20 95 05/05/19 11:00 88 16 137/86 92 05/05/19 10:00 104 H 28 H 156/96 H 91 05/05/19 09:00 101 H 18 159/85 H 93 05/05/19 08:00 108 H 15 153/87 H 95 05/05/19 07:11 106 H 18 96 05/05/19 07:00 36.9 C 103 H 20 182/86 H 91 05/05/19 06:00 107 H 17 179/133 H 92 05/05/19 05:00 98 H 15 160/120 H 92 05/05/19 04:00 36.8 C 111 H 18 161/110 H 91 05/05/19 03:00 102 H 17 171/137 H 91
[2019-05-05 15:20] LABS: BUN Creatinine Ratio 11.2 (10-20); Calcium 8.5 mg/dl (8.5-10.1); Est GFR (African American) 124.4; Est GFR (Non-African American) 107.4; Potassium 3.4 mmol/L (3.5-5.1)
--- NOTE | 2019-05-05 16:13 | Nephrology Consultation ---
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 It is unclear if the hyponatremia triggered the seizures of patient had seizures due to alcohol withdrawal and then developed SIADH in setting of seizures. Regardless sodium is improving. She has now overcorrected to 128. Patient should be at 128 by tomorrow morning. We will give DDAVP 2 mcg 8 hourly to keep her at 128. Patient will likely need fluid restriction towards discharge. Stop normal saline infusion. Patient can drink and eat freely. Monitor sodium twice daily. (2) Hypokalemia: K of 3.4 today. No need for additional potassium supplementation as this will lead to further increases in sodium. (3) Hypertension: Blood pressure is above target today. Patient also with alcohol withdrawal which can lead to hypertension. We will continue to monitor for now. History of Present Illness Reason for Consultation: Hyponatremia Requesting Physician: Marilee Cuellar Attending Physician: Marilee Cuellar History of Present Illness This is a 58-year-old female with history of hypertension and alcohol use who was admitted on 05/03/2019 with altered mental status, seizures and found to have a sodium of 110. Nephrology was not involved until now. Patient reports episodes of alcoholic binges. She reports drinking several beers on Friday. She woke up Friday morning and had episode of seizure which prompted ER visit. She was transferred to the ICU where she has been receiving 3% saline. Sodium this morning was 121 and at 2 PM it was 128. She is receiving normal saline at 75 cc/h. Serum osmolality was 237 on admission, urine estimate of 191 and urine sodium of 32. She feels well now denies any headache, nausea or vomiting. No urinary symptoms. She has not had seizures since admission. She is eating and drinking well. Allergies Allergy/AdvReac Type Severity Reaction Status Date / Time Penicillins Allergy Severe ANAPHYLAXIS Verified 05/03/19 08:06 adhesive Allergy Intermediate REDNESS Verified 05/03/19 08:06 WITH SOME BANDAIDS sulfamethoxazole Allergy Intermediate HIVES RASH Verified 05/03/19 08:06 trimethoprim Allergy Intermediate HIVES RASH Verified 05/03/19 08:06 Bactrim Allergy Unknown HIVES RASH Unverified 05/03/19 08:06 pravastatin AdvReac Mild MUSCLE PAIN Verified 05/03/19 08:06 Home Medications Home Medications Medication Instructions Recorded Confirmed Type acetaminophen [Tylenol Extra 1,000 mg PO TID 11/12/18 05/03/19 History Strength] atorvastatin 10 mg PO HS 05/03/19 05/03/19 History clonazepam 1.5 mg PO HS PRN 05/03/19 05/03/19 History gabapentin 200 mg PO TID 05/03/19 05/03/19 History tramadol 100 mg PO QID PRN 05/03/19 05/03/19 History verapamil 240 mg PO PM 05/03/19 05/03/19 History Patient History Medical History GERD (gastroesophageal reflux disease) (Chronic) Restless leg syndrome (Chronic) Hypertension (Chronic) Hyperlipidemia (Chronic) Osteoarthritis (Chronic) Chronic back pain (Chronic) WITH RLE RADICULOPATHY Obesity (Chronic) Surgical History History of back surgery (Chronic) History of tubal ligation (Chronic) H/O neck surgery (Chronic) FUSION Hx of lumpectomy (Chronic) RIGHT BENIGN History of tooth extraction (Chronic) WISDOM TEETH Family History Sister Deep vein thrombosis Father Family hx of colon cancer Sister Heart disease Social History Preferred Language: [place]bourgish Communication Ability: Effective Kiss Machine Operator Required: No Beliefs That Will Affect Care: None marital status: Current Living Situation: Spouse Other Information That Helps Us Care for You: No Feels Safe at Home: Yes Smoking Status: Current every day smoker Tobacco Type: cigarettes Cigarettes Per Day: 1 pack/day Do You Dip or Chew Tobacco: No Second Hand Exposure: Yes Tobacco Cessation Education Requested by Patient: No Hx Alcohol Use: Yes Alcohol type: beer Alcohol Intake Frequency Comment: Drinks 60 beers in the past 1 week Hx Substance Use: No Review of Systems Review of Systems: All systems reviewed & are unremarkable except as noted in HPI & below Physical Exam Physical Exam: General exam: Appears comfortable, no acute distress HEENT: Pupils are equal and reactive to light Neck: No JVD, neck is supple trachea is midline Respiratory system: Clear breath sounds bilaterally. Gastrointestinal: Abdomen is soft, non distended, non tender, bowel sounds are present CVS: Regular rate and rhythm. No murmurs, rubs or gallops Musculoskeletal: No joint or muscle tenderness Extremities: Non tender, no edema, peripheral pulses are present Neuro: Oriented, no tremors, no focal neurological deficits Skin: No rashes Results & Data Vital Signs (Past 12 Hours) Vital Signs Temp Pulse Pulse Resp BP Pulse Ox 05/05/19 15:19 96 H 18 92 05/05/19 15:00 36.8 C 103 H 18 152/87 H 94 05/05/19 14:00 103 H 16 148/87 H 92 05/05/19 13:00 96 H 16 134/101 H 94 05/05/19 12:00 36.9 C 105 H 23 155/83 H 93 05/05/19 11:15 93 H 20 95 05/05/19 11:00 88 16 137/86 92 05/05/19 10:00 104 H 28 H 156/96 H 91 05/05/19 09:00 101 H 18 159/85 H 93 05/05/19 08:00 108 H 15 153/87 H 95 05/05/19 07:11 106 H 18 96 05/05/19 07:00 36.9 C 103 H 20 182/86 H 91 05/05/19 06:00 107 H 17 179/133 H 92 05/05/19 05:00 98 H 15 160/120 H 92 Laboratory Results Laboratory Results - last 24 hr 05/04/19 05/04/19 05/04/19 16:41 17:25 20:47 WBC RBC Hgb Hct MCV MCH MCHC RDW Std Deviation RDW Coeff of [place]emberto Plt Count MPV Immature Gran % (Auto) Neut % (Auto) Lymph % (Auto) [place] % (Auto) Eos % (Auto) Baso % (Auto) Immature Gran # (Auto) Neut # (Auto) Lymph # (Auto) [place] # (Auto) Eos # (Auto) Baso # (Auto) Sodium 119 L* 121 L Potassium 3.4 L D 3.8 Chloride 83 L 86 L Carbon Dioxide 29 27 Anion Gap 7.0 8.0 BUN 3 L 3 L Creatinine 0.39 L 0.37 L Est Cr Clr Drug Dosing 167.4 176.4 Est GFR ( Amer) 133.2 135.6 Est GFR (Non-Af Amer) 115.0 117.0 BUN/Creatinine Ratio 7.4 L 6.7 L Glucose 107 H 103 H POC Glucose 126 H Calcium 7.8 L 8.0 L Ionized Calcium Phosphorus Magnesium Total Bilirubin Direct Bilirubin AST ALT Alkaline Phosphatase Total Protein Albumin 05/05/19 05/05/19 05/05/19 04:27 04:27 04:27 WBC 11.06 H RBC 4.48 Hgb 14.6 Hct 40.0 MCV 89.3 MCH 32.6 MCHC 36.5 H RDW Std Deviation 45.7 RDW Coeff of [place] 14.0 Plt Count 80 L MPV 10.4 Immature Gran % (Auto) 0.3 Neut % (Auto) 80.1 Lymph % (Auto) 9.8 [place] % (Auto) 9.4 Eos % (Auto) 0.4 Baso % (Auto) 0.0 Immature Gran # (Auto) 0.03 H Neut # (Auto) 8.87 H Lymph # (Auto) 1.08 L [place] # (Auto) 1.04 H Eos # (Auto) 0.04 Baso # (Auto) 0.00 Sodium Potassium Chloride Carbon Dioxide Anion Gap BUN Creatinine Est Cr Clr Drug Dosing Est GFR ( Amer) Est GFR (Non-Af Amer) BUN/Creatinine Ratio Glucose POC Glucose Calcium Ionized Calcium 1.00 L Phosphorus 2.0 L Magnesium 1.9 Total Bilirubin 1.4 H Direct Bilirubin 0.4 H AST 118 H ALT 78 Alkaline Phosphatase 152 H Total Protein 6.4 Albumin 2.8 L 05/05/19 05/05/19 05/05/19 07:22 08:37 11:26 WBC RBC Hgb Hct MCV MCH MCHC RDW Std Deviation RDW Coeff of [place]emberto Plt Count MPV Immature Gran % (Auto) Neut % (Auto) Lymph % (Auto) [place] % (Auto) Eos % (Auto) Baso % (Auto) Immature Gran # (Auto) Neut # (Auto) Lymph # (Auto) [place] # (Auto) Eos # (Auto) Baso # (Auto) Sodium 121 L Potassium 3.0 L D Chloride 88 L Carbon Dioxide 24 Anion Gap 9.0 BUN 3 L Creatinine 0.45 L Est Cr Clr Drug Dosing 145.1 Est GFR ( Amer) 127.1 Est GFR (Non-Af Amer) 109.7 BUN/Creatinine Ratio 5.6 L Glucose 140 H POC Glucose 104 H 104 H Calcium 7.9 L Ionized Calcium Phosphorus Magnesium Total Bilirubin Direct Bilirubin AST ALT Alkaline Phosphatase Total Protein Albumin 05/05/19 05/05/19 14:38 16:04 WBC RBC Hgb Hct MCV MCH MCHC RDW Std Deviation RDW Coeff of [place]emberto Plt Count MPV Immature Gran % (Auto) Neut % (Auto) Lymph % (Auto) [place] % (Auto) Eos % (Auto) Baso % (Auto) Immature Gran # (Auto) Neut # (Auto) Lymph # (Auto) [place] # (Auto) Eos # (Auto) Baso # (Auto) Sodium 128 L D Potassium 3.4 L Chloride 93 L Carbon Dioxide 28 Anion Gap 6.0 BUN 5 L Creatinine 0.48 L Est Cr Clr Drug Dosing 136.0 Est GFR ( Amer) 124.4 Est GFR (Non-Af Amer) 107.4 BUN/Creatinine Ratio 11.2 Glucose 100 H POC Glucose 129 H Calcium 8.5 Ionized Calcium Phosphorus Magnesium Total Bilirubin Direct Bilirubin AST ALT Alkaline Phosphatase Total Protein Albumin (1) Hypertension Hypertension type: unspecified Qualified Code(s): I10 - Essential (primary) hypertension
[2019-05-05] MEDS: ATORVASTATIN 10 MG TAB PO SCH (20:09)
[2019-05-05 20:40] LABS: Calcium 8.6 mg/dl (8.5-10.1); Creatinine Clr Calc Pharmacy 82.6 ml/min; Est GFR (Non-African American) 81.9; Potassium 3.4 mmol/L (3.5-5.1)
[2019-05-06] MEDS ORDERED: SODIUM CHLORIDE 0.65% NA SOLN 45 ML (OCEAN) ONE (03:04)
[2019-05-06] MEDS ORDERED: SODIUM CHLORIDE 0.65% NA SOLN 45 ML (OCEAN) PRN (03:19)
[2019-05-06 04:42] LABS: Basophils # (auto) 0.01 K/uL (0-0.2); Basophils % (auto) 0.1 %; Eosinophils # (auto) 0.02 K/uL (0-0.5); Eosinophils % (auto) 0.2 %; Hematocrit (blood only) 38.6 % (37-47); Hemoglobin 13.9 g/dL (12.0-16.0); Immature Granulocytes # (auto) 0.02 K/uL (0.00-0.02); Immature Granulocytes % (auto) 0.2 %; Lymphocytes # (auto) 1.09 K/uL (1.2-3.4); Lymphocytes % (auto) 10.8 %; Mean Corpuscular Volume 90.4 fL (80-100); Mean Platelet Volume 10.5 fL (7.4-10.4); Monocytes # (auto) 0.87 K/uL (0.11-0.59); Monocytes % (auto) 8.6 %; Neutrophils # (auto) 8.05 K/uL (1.4-6.5); Neutrophils % (auto) 80.1 %; Platelet Count 107 K/uL (130-400); RDW Coefficient of Variation 14.3 % (11.5-14.5); RDW Standard Deviation 46.7 fL (36.4-46.3); Red Blood Count 4.27 M/uL (4.2-5.4); White Blood Count 10.06 K/uL (4.8-10.8)
[2019-05-06 05:00] LABS: Albumin Level 2.6 gm/dl (3.4-5.0); BUN Creatinine Ratio 12.1 (10-20); Bilirubin Direct 0.4 mg/dl (0-0.2); Calcium 7.9 mg/dl (8.5-10.1); Creatinine Clr Calc Pharmacy 181.3 ml/min; Est GFR (African American) 136.8; Magnesium 1.9 mg/dl (1.8-2.4); Potassium 3.1 mmol/L (3.5-5.1)
[2019-05-06 05:17] LABS: Bilirubin,Total 1.2 mg/dl (0.2-1); Phosphorus 2.3 mg/dl (2.5-4.9); Total Protein 6.5 gm/dl (6.4-8.2)
[2019-05-06] MEDS: ALBUT/IPRATROP 3MG/0.5MG NEB 3 ML VIAL NEB SCH ×4 (06:54→20:03)
[2019-05-06] MEDS: INSULIN ASPART 100 UNITS/ML 3 ML PEN SC SCH ×4 (07:53→20:53)
[2019-05-06] MEDS: DESMOPRESSIN ACETATE 2 MCG in SODIUM CHLORIDE 0.9% 50 ML IV SCH (07:59)
[2019-05-06] MEDS: NICOTINE 21 MG/24 HR TDSY TD SCH (08:00)
[2019-05-06] MEDS: VERAPAMIL HCL 240 MG TABCR PO SCH (08:00)
[2019-05-06] MEDS: GABAPENTIN 100 MG CAP PO SCH ×3 (08:01→20:53)
[2019-05-06] MEDS: ACETAMINOPHEN 325 MG TAB PO PRN (08:08)
[2019-05-06] MEDS ORDERED: POTASSIUM CHLORIDE 20 MEQ TABCR PO STA (08:37)
--- NOTE | 2019-05-06 10:04 | Nephrology Progress Note ---
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 It is unclear if the hyponatremia triggered the seizures of patient had seizures due to alcohol withdrawal and then developed SIADH in setting of seizures. Regardless sodium is improving. Sodium was 124 this morning. This can DDAVP. Patient can now correct on her own. Patient can drink and eat freely. Monitor sodium daily. -Remove Abbasi catheter (2) Hypokalemia: K of 3.1 today. We will give 60 mEq of potassium chloride p.o. (3) Hypertension: Blood pressure is above target today. Patient also with alcohol withdrawal which can lead to hypertension. Will start metoprolol 25 mg twice daily. Subjective Patient seen in follow-up for hyponatremia. She is eating and drinking well. No shortness of breath or headache. No further seizures. Sodium 124 this morning. Review of Systems Review of Systems: All systems reviewed & are unremarkable except as noted in HPI & below Physical Exam Physical Exam: General exam: Appears comfortable, no acute distress HEENT: Pupils are equal and reactive to light Neck: No JVD, neck is supple trachea is midline Respiratory system: Clear breath sounds bilaterally. Gastrointestinal: Abdomen is soft, non distended, non tender, bowel sounds are present CVS: Regular rate and rhythm. No murmurs, rubs or gallops Musculoskeletal: No joint or muscle tenderness Extremities: Non tender, no edema, peripheral pulses are present Neuro: Oriented, no tremors, no focal neurological deficits Skin: No rashes Results & Data Vital Signs (Past 12 Hours) Vital Signs Temp Pulse Pulse Resp BP BP Pulse Ox 05/06/19 08:00 120 H 24 05/06/19 07:57 37.4 C 121 H 15 177/84 H 92 05/06/19 07:00 108 H 22 05/06/19 06:57 109 H 16 96 05/06/19 04:00 36.6 C 113 H 23 158/105 H 92 05/05/19 23:49 37.4 C 110 H 19 149/88 H 96 05/05/19 23:48 114 H Laboratory Results Laboratory Results - last 24 hr 05/05/19 05/05/19 05/05/19 11:26 14:38 16:04 WBC RBC Hgb Hct MCV MCH MCHC RDW Std Deviation RDW Coeff of Remberto Plt Count MPV Immature Gran % (Auto) Neut % (Auto) Lymph % (Auto) [place] % (Auto) Eos % (Auto) Baso % (Auto) Immature Gran # (Auto) Neut # (Auto) Lymph # (Auto) [place] # (Auto) Eos # (Auto) Baso # (Auto) Sodium 128 L D Potassium 3.4 L Chloride 93 L Carbon Dioxide 28 Anion Gap 6.0 BUN 5 L Creatinine 0.48 L Est Cr Clr Drug Dosing 136.0 Est GFR ( Amer) 124.4 Est GFR (Non-Af Amer) 107.4 BUN/Creatinine Ratio 11.2 Glucose 100 H POC Glucose 104 H 129 H Calcium 8.5 Phosphorus Magnesium Total Bilirubin Direct Bilirubin AST ALT Alkaline Phosphatase Total Protein Albumin 05/05/19 05/05/19 05/06/19 20:11 20:11 04:26 WBC 10.06 RBC 4.27 Hgb 13.9 Hct 38.6 MCV 90.4 MCH 32.6 MCHC 36.0 RDW Std Deviation 46.7 H RDW Coeff of Remberto 14.3 Plt Count 107 L MPV 10.5 H Immature Gran % (Auto) 0.2 Neut % (Auto) 80.1 Lymph % (Auto) 10.8 [place] % (Auto) 8.6 Eos % (Auto) 0.2 Baso % (Auto) 0.1 Immature Gran # (Auto) 0.02 Neut # (Auto) 8.05 H Lymph # (Auto) 1.09 L [place] # (Auto) 0.87 H Eos # (Auto) 0.02 Baso # (Auto) 0.01 Sodium 129 L Potassium 3.4 L Chloride 96 L Carbon Dioxide 25 Anion Gap 9.0 BUN 7 Creatinine 0.79 D Est Cr Clr Drug Dosing 82.6 Est GFR ( Amer) 95.0 Est GFR (Non-Af Amer) 81.9 BUN/Creatinine Ratio 9.0 L Glucose 101 H POC Glucose 96 Calcium 8.6 Phosphorus Magnesium Total Bilirubin Direct Bilirubin AST ALT Alkaline Phosphatase Total Protein Albumin 05/06/19 04:26 WBC RBC Hgb Hct MCV MCH MCHC RDW Std Deviation RDW Coeff of Remberto Plt Count MPV Immature Gran % (Auto) Neut % (Auto) Lymph % (Auto) [place] % (Auto) Eos % (Auto) Baso % (Auto) Immature Gran # (Auto) Neut # (Auto) Lymph # (Auto) [place] # (Auto) Eos # (Auto) Baso # (Auto) Sodium 124 L Potassium 3.1 L Chloride 90 L Carbon Dioxide 22 Anion Gap 12.0 H BUN 4 L Creatinine 0.36 L D Est Cr Clr Drug Dosing 181.3 Est GFR ( Amer) 136.8 Est GFR (Non-Af Amer) 118.0 BUN/Creatinine Ratio 12.1 Glucose 114 H POC Glucose Calcium 7.9 L Phosphorus 2.3 L Magnesium 1.9 Total Bilirubin 1.2 H Direct Bilirubin 0.4 H AST 125 H ALT 79 H Alkaline Phosphatase 153 H Total Protein 6.5 Albumin 2.6 L (1) Hypertension Hypertension type: unspecified Qualified Code(s): I10 - Essential (primary) hypertension
[2019-05-06] MEDS: METOPROLOL TARTRATE 25 MG TAB PO SCH ×3 (11:50→20:52)
[2019-05-06 16:49] LABS: Anaplasma phagocytophila IgM <1:20 (<1:20); Ehrlichia chaff DNA Bld Not Detected (Not Detected); Ehrlichia chaff IgG Ab <1:64 (<1:64); Ehrlichia chaff IgM Ab <1:20 (<1:20); Methyl Alcohol Level NEGATIVE <5 MG/DL (NONE DETECTED)
--- NOTE | 2019-05-06 17:21 | Hospitalist Progress Note ---
Date of Service May 06, 2019 Assessment & Plan (1) Hyponatremia: Improving Presented with severe hyponatremia 110 causing seizure in setting of alcohol withdrawal Urine output >2 L on admission, DDAVP administered. 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 -CT head- neg, EEG -normal sleep routine EEG, excessive beta activity is a normal variant and can be seen as medication side effect. No epileptiform activity is recorded. (3) Alcohol withdrawal delirium: Awake, alert, oriented x 3 now. Received phenobarbital on 05/04/2019. -Continue with gabapentin protocol and Ativan as needed -HR went up today ---> Metoprolol was ordered -Monitor for s/s of alcohol withdrawal (4) Hypokalemia: (5) Smoker: Smoking cessation advised. (6) Alcohol abuse: As above. -Counseling done (7) DVT prophylaxis: SCDs Full Code Dispo- Okay to transfer to [facility] with telemetry. Discussed case with nut process helper. Updated by bedside. Subjective Patient is feeling much better. Denies any abdominal pain, nausea, vomiting, fever, chills. HR has improved, BP slightly up Physical Exam Physical Exam: GENERAL- AAOX3, No acute distress LUNGS- Air entry bilaterally equal. No rales, rhonchi, crackles, wheezes heard. HEART- Regular rate and rhythm. No murmurs ABDOMEN- Soft, non tender, non distended, Bowel sounds heard. EXTREMITIES- Good peripheral pulses, no edema NEUROMUSCULAR- AAOX3, Grossly no focal deficits Results & Data Vital Signs (Past 12 Hours) Vital Signs Temp Pulse Pulse Resp BP Pulse Ox 05/06/19 15:23 82 16 96 05/06/19 14:51 36.9 C 83 20 158/93 H 95 05/06/19 12:00 102 H 22 05/06/19 11:54 36.8 C 100 H 29 H 176/92 H 05/06/19 11:34 96 H 16 96 05/06/19 11:16 104 H 20 05/06/19 10:00 117 H 20 05/06/19 08:00 120 H 24 05/06/19 07:57 37.4 C 121 H 15 177/84 H 92 05/06/19 07:00 108 H 22 05/06/19 06:57 109 H 16 96
[2019-05-06] MEDS: ATORVASTATIN 10 MG TAB PO SCH (20:52)
[2019-05-07 06:35] LABS: Eosinophils # (auto) 0.02 K/uL (0-0.5); Eosinophils % (auto) 0.2 %; Hematocrit (blood only) 42.3 % (37-47); Hemoglobin 15.8 g/dL (12.0-16.0); Immature Granulocytes # (auto) 0.02 K/uL (0.00-0.02); Immature Granulocytes % (auto) 0.2 %; Lymphocytes # (auto) 1.04 K/uL (1.2-3.4); Lymphocytes % (auto) 10.1 %; Mean Corpuscular Hgb Conc 37.4 g/dL (32-36); Mean Corpuscular Volume 89.6 fL (80-100); Mean Platelet Volume 10.4 fL (7.4-10.4); Monocytes # (auto) 1.23 K/uL (0.11-0.59); Neutrophils # (auto) 7.94 K/uL (1.4-6.5); Neutrophils % (auto) 77.5 %; Platelet Count 158 K/uL (130-400); RDW Standard Deviation 45.6 fL (36.4-46.3); Red Blood Count 4.72 M/uL (4.2-5.4); White Blood Count 10.25 K/uL (4.8-10.8)
[2019-05-07] MEDS: ALBUT/IPRATROP 3MG/0.5MG NEB 3 ML VIAL NEB SCH (07:07)
[2019-05-07 07:17] LABS: Albumin Level 2.9 gm/dl (3.4-5.0); BUN Creatinine Ratio 8.4 (10-20); Bilirubin Direct 0.4 mg/dl (0-0.2); Bilirubin,Total 1.3 mg/dl (0.2-1); Creatinine Clr Calc Pharmacy 162.7 ml/min; Est GFR (African American) 133.2; Magnesium 2.1 mg/dl (1.8-2.4); Phosphorus 2.9 mg/dl (2.5-4.9); Total Protein 7.5 gm/dl (6.4-8.2)
[2019-05-07] MEDS: INSULIN ASPART 100 UNITS/ML 3 ML PEN SC SCH ×2 (07:49→11:25)
[2019-05-07] MEDS: GABAPENTIN 100 MG CAP PO SCH ×3 (08:23→20:36)
[2019-05-07] MEDS: NICOTINE 21 MG/24 HR TDSY TD SCH (08:24)
[2019-05-07] MEDS: VERAPAMIL HCL 240 MG TABCR PO SCH (08:24)
[2019-05-07] MEDS: METOPROLOL TARTRATE 25 MG TAB PO SCH ×2 (08:24→20:37)
--- NOTE | 2019-05-07 10:07 | Nephrology Progress Note ---
Date of Service May 07, 2019 Assessment & Plan (1) Hyponatremia: Patient with hyponatremia likely due to syndrome of inappropriate ADH. It is unclear if the hyponatremia triggered the seizures of patient had seizures due to alcohol withdrawal and then developed SIADH in setting of seizures. Regardless sodium is improving. Sodium was 127 this morning. Patient can drink and eat freely. Monitor sodium daily. (2) Hypokalemia: K of 3 today. We will give 40 mEq of potassium chloride p.o twice daily. (3) Hypertension: Blood pressure is above target today likely due to withdrawal from nicotine and alcohol. Continue metoprolol and verapamil. Avoid working up the patient in the middle of the night to check blood pressure. Subjective Patient seen in follow-up for hyponatremia. She feels better this morning. She had high blood pressure and tachycardia last night. She was apparently woken up at 3 AM to check blood pressure and at 5 AM. Patient was irritated about this. She denies any shortness of breath. She is eating and drinking well. Sodium is better this morning at 127. Review of Systems Review of Systems: All systems reviewed & are unremarkable except as noted in HPI & below Physical Exam Physical Exam: General exam: Appears comfortable, no acute distress HEENT: Pupils are equal and reactive to light Neck: No JVD, neck is supple trachea is midline Respiratory system: Clear breath sounds bilaterally. Gastrointestinal: Abdomen is soft, non distended, non tender, bowel sounds are present CVS: Sinus tachycardia. No murmurs, rubs or gallops Musculoskeletal: No joint or muscle tenderness Extremities: Non tender, no edema, peripheral pulses are present Neuro: Oriented, no tremors, no focal neurological deficits Skin: No rashes Results & Data Vital Signs (Past 12 Hours) Vital Signs Temp Pulse Pulse Pulse Resp BP BP 05/07/19 08:00 109 H 05/07/19 07:08 118 H 20 05/07/19 07:00 37.2 C 119 H 18 181/102 H 05/07/19 03:00 36.9 C 107 H 21 176/90 H 05/06/19 23:22 36.8 C 104 H 21 176/96 H Pulse Ox 05/07/19 08:00 05/07/19 07:08 94 05/07/19 07:00 96 05/07/19 03:00 93 05/06/19 23:22 96 Laboratory Results Laboratory Results - last 24 hr 07/22/19 07/25/19 07/25/19 11:43 16:02 20:50 WBC RBC Hgb Hct MCV MCH MCHC RDW Std Deviation RDW Coeff of Remberto Plt Count MPV Immature Gran % (Auto) Neut % (Auto) Lymph % (Auto) [place] % (Auto) Eos % (Auto) Baso % (Auto) Immature Gran # (Auto) Neut # (Auto) Lymph # (Auto) [place] # (Auto) Eos # (Auto) Baso # (Auto) Sodium Potassium Chloride Carbon Dioxide Anion Gap BUN Creatinine Est Cr Clr Drug Dosing Est GFR ( Amer) Est GFR (Non-Af Amer) BUN/Creatinine Ratio Glucose POC Glucose 127 H 125 H Calcium Phosphorus Magnesium Total Bilirubin Direct Bilirubin AST ALT Alkaline Phosphatase Total Protein Albumin Methyl Alcohol Level NEGATIVE <5 A. phagocytophilum IgG <1:64 A. phagocytophilum IgM <1:20 A. phagocytophilum DNA Not Detected A.phagocytophilum Intrp see note A. phagocytophilum Cmmt see note E. chaffeensis IgG Ab <1:64 E. chaffeensis IgM Ab <1:20 E.chaffeensis DNA (PCR) Not Detected E. chaffeensis Interp see note E. chaffeensis Comment see note 05/07/19 05/07/19 06:02 06:02 WBC 10.25 RBC 4.72 Hgb 15.8 Hct 42.3 MCV 89.6 MCH 33.5 MCHC 37.4 H RDW Std Deviation 45.6 RDW Coeff of Remberto 14.0 Plt Count 158 MPV 10.4 Immature Gran % (Auto) 0.2 Neut % (Auto) 77.5 Lymph % (Auto) 10.1 [place] % (Auto) 12.0 Eos % (Auto) 0.2 Baso % (Auto) 0.0 Immature Gran # (Auto) 0.02 Neut # (Auto) 7.94 H Lymph # (Auto) 1.04 L [place] # (Auto) 1.23 H Eos # (Auto) 0.02 Baso # (Auto) 0.00 Sodium 127 L Potassium 3.0 L Chloride 93 L Carbon Dioxide 24 Anion Gap 10.0 BUN 3 L Creatinine 0.39 L Est Cr Clr Drug Dosing 162.7 Est GFR ( Amer) 133.2 Est GFR (Non-Af Amer) 115.0 BUN/Creatinine Ratio 8.4 L Glucose 95 POC Glucose Calcium 9.0 Phosphorus 2.9 Magnesium 2.1 Total Bilirubin 1.3 H Direct Bilirubin 0.4 H AST 216 H ALT 115 H Alkaline Phosphatase 193 H Total Protein 7.5 Albumin 2.9 L Methyl Alcohol Level A. phagocytophilum IgG A. phagocytophilum IgM A. phagocytophilum DNA A.phagocytophilum Intrp A. phagocytophilum Cmmt E. chaffeensis IgG Ab E. chaffeensis IgM Ab E.chaffeensis DNA (PCR) E. chaffeensis Interp E. chaffeensis Comment (1) Hypertension Hypertension type: unspecified Qualified Code(s): I10 - Essential (primary) hypertension
[2019-05-07] MEDS: POTASSIUM CHLORIDE 20 MEQ TABCR PO SCH ×2 (10:28→20:35)
--- NOTE | 2019-05-07 15:07 | Hospitalist Progress Note ---
Date of Service May 07, 2019 Assessment & Plan (1) Hyponatremia: Improving Presented with severe hyponatremia 110 causing seizure in setting of alcohol withdrawal. Improving and up to 127 today Urine output >2 L on admission, DDAVP administered. 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 -CT head- neg, EEG -normal sleep routine EEG, excessive beta activity is a normal variant and can be seen as medication side effect. No epileptiform activity is recorded. (3) Hypertension: Uncontrolled -Metoprolol 25 mg PO BID was started during this admission as was tachycardic and BP high -Continue with Verapamil 240 g daily -Monitor closely (4) Alcohol withdrawal delirium: Awake, alert, oriented x 3 Received phenobarbital on 05/04/2019. -Continue with gabapentin protocol and Ativan as needed -Doing well (5) Hypokalemia: (6) Smoker: Smoking cessation advised. (7) Alcohol abuse: As above. -Counseling done (8) DVT prophylaxis: SCDs Full Code Dispo- Okay to transfer to [facility] Updated by bedside. Subjective Patient is feeling much better. Denies any abdominal pain, nausea, vomiting, fever, chills. Eager to be discharged Physical Exam Physical Exam: GENERAL- AAOX3, No acute distress LUNGS- Air entry bilaterally equal. No rales, rhonchi, crackles, wheezes heard. HEART- Regular rate and rhythm. No murmurs ABDOMEN- Soft, non tender, non distended, Bowel sounds heard. EXTREMITIES- Good peripheral pulses, no edema NEUROMUSCULAR- AAOX3, Grossly no focal deficits Results & Data Vital Signs (Past 12 Hours) Vital Signs Temp Pulse Pulse Resp BP BP Pulse Ox 05/07/19 14:56 37.2 C 98 H 18 171/93 H 95 05/07/19 11:42 37 C 100 H 18 155/80 H 92 05/07/19 08:00 109 H 05/07/19 07:08 118 H 20 94 05/07/19 07:00 37.2 C 119 H 18 181/102 H 96 (1) Hypertension Hypertension type: unspecified Qualified Code(s): I10 - Essential (primary) hypertension
[2019-05-07] MEDS: ATORVASTATIN 10 MG TAB PO SCH (20:36)
[2019-05-08] MEDS: ACETAMINOPHEN 325 MG TAB PO PRN ×3 (04:50→18:26)
[2019-05-08 06:52] LABS: Basophils # (auto) 0.01 K/uL (0-0.2); Basophils % (auto) 0.1 %; Eosinophils # (auto) 0.06 K/uL (0-0.5); Eosinophils % (auto) 0.8 %; Hematocrit (blood only) 36.2 % (37-47); Immature Granulocytes # (auto) 0.03 K/uL (0.00-0.02); Immature Granulocytes % (auto) 0.4 %; Lymphocytes # (auto) 1.22 K/uL (1.2-3.4); Mean Corpuscular Hgb Conc 35.9 g/dL (32-36); Mean Corpuscular Volume 91.2 fL (80-100); Mean Platelet Volume 9.5 fL (7.4-10.4); Monocytes % (auto) 19.5 %; Neutrophils # (auto) 4.45 K/uL (1.4-6.5); Neutrophils % (auto) 62.2 %; Platelet Count 197 K/uL (130-400); RDW Coefficient of Variation 14.3 % (11.5-14.5); RDW Standard Deviation 47.8 fL (36.4-46.3); Red Blood Count 3.97 M/uL (4.2-5.4); White Blood Count 7.17 K/uL (4.8-10.8)
[2019-05-08 06:54] LABS: Albumin Level 2.5 gm/dl (3.4-5.0); Bilirubin Direct 0.3 mg/dl (0-0.2); Bilirubin,Total 0.9 mg/dl (0.2-1); Magnesium 1.8 mg/dl (1.8-2.4); Total Protein 6.2 gm/dl (6.4-8.2)
[2019-05-08] MEDS: POTASSIUM CHLORIDE 20 MEQ TABCR PO SCH ×2 (07:23→20:51)
[2019-05-08] MEDS: NICOTINE 21 MG/24 HR TDSY TD SCH (07:24)
[2019-05-08] MEDS: VERAPAMIL HCL 240 MG TABCR PO SCH (07:25)
[2019-05-08] MEDS: GABAPENTIN 100 MG CAP PO SCH ×3 (07:25→20:52)
[2019-05-08] MEDS: METOPROLOL TARTRATE 25 MG TAB PO SCH ×2 (07:25→20:52)
[2019-05-08 10:21] LABS: BUN Creatinine Ratio 15.4 (10-20); Est GFR (Non-African American) 112.2; Potassium 3.7 mmol/L (3.5-5.1)
--- NOTE | 2019-05-08 15:08 | Hospitalist Progress Note ---
Date of Service May 08, 2019 Assessment & Plan (1) Hyponatremia: Improving Presented with severe hyponatremia 110 causing seizure in setting of alcohol withdrawal. Improving and up to 128 today Urine output >2 L on admission, DDAVP administered. 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 -CT head- neg, EEG -normal sleep routine EEG, excessive beta activity is a normal variant and can be seen as medication side effect. No epileptiform activity is recorded. (3) Hypertension: Uncontrolled -Metoprolol 25 mg PO BID was started during this admission as was tachycardic and BP high -Continue with Verapamil 240 g daily -Monitor closely (4) Alcohol withdrawal delirium: Awake, alert, oriented x 3 Received phenobarbital on 05/04/2019. -Continue with gabapentin protocol and Ativan as needed -Doing well - No DTs (5) Hypokalemia: (6) Smoker: Smoking cessation advised. (7) Alcohol abuse: As above. -Counseling done (8) DVT prophylaxis: SCDs Full Code Dispo- Likely discharge tomorrow as long as Na continues to be up trending Updated by bedside. Subjective Patient is feeling much better. Denies any abdominal pain, nausea, vomiting, fever, chills. Eager to be discharged Physical Exam Physical Exam: GENERAL- AAOX3, No acute distress LUNGS- Air entry bilaterally equal. No rales, rhonchi, crackles, wheezes heard. HEART- Regular rate and rhythm. No murmurs ABDOMEN- Soft, non tender, non distended, Bowel sounds heard. EXTREMITIES- Good peripheral pulses, no edema NEUROMUSCULAR- AAOX3, Grossly no focal deficits Results & Data Vital Signs (Past 12 Hours) Vital Signs Temp Pulse Resp BP Pulse Ox 05/08/19 10:32 100 H 122/78 05/08/19 08:00 97 05/08/19 07:00 36.2 C L 100 H 20 175/101 H 97 (1) Hypertension Hypertension type: unspecified Qualified Code(s): I10 - Essential (primary) hypertension
[2019-05-08] MEDS: ATORVASTATIN 10 MG TAB PO SCH (20:52)
[2019-05-09] MEDS ORDERED: LISINOPRIL 10 MG TAB PO STA (01:02)
[2019-05-09 06:58] LABS: BUN Creatinine Ratio 14.9 (10-20); Calcium 8.5 mg/dl (8.5-10.1); Creatinine Clr Calc Pharmacy 192.2 ml/min; Est GFR (African American) 140.8; Est GFR (Non-African American) 121.5; Potassium 3.8 mmol/L (3.5-5.1)
[2019-05-09] MEDS: METOPROLOL TARTRATE 25 MG TAB PO SCH (07:31)
[2019-05-09] MEDS: VERAPAMIL HCL 240 MG TABCR PO SCH (07:32)
[2019-05-09] MEDS: GABAPENTIN 100 MG CAP PO SCH (07:32)
[2019-05-09] MEDS: POTASSIUM CHLORIDE 20 MEQ TABCR PO SCH (07:33)
[2019-05-09] MEDS: NICOTINE 21 MG/24 HR TDSY TD SCH (07:34)
--- NOTE | 2019-05-09 08:47 | Hospitalist Progress Note ---
Date of Service May 09, 2019 Assessment & Plan (1) Hyponatremia: Resolving Presented with severe hyponatremia 110 causing seizure in setting of alcohol withdrawal. Improving and up to 130 today Urine output >2 L on admission, DDAVP administered. 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 -CT head- neg, EEG -normal sleep routine EEG, excessive beta activity is a normal variant and can be seen as medication side effect. No epileptiform activity is recorded. -No indication of anti seizure medications (3) Hypertension: Uncontrolled -Metoprolol 25 mg PO BID was started during this admission as was tachycardic and BP high. Added Lisinopril 10 mg daily during this admission. -Continue with Verapamil 240 g daily -Monitor outpatient (4) Alcohol withdrawal delirium: Awake, alert, oriented x 3 Received phenobarbital on 05/04/2019. -Continue with gabapentin protocol and Ativan as needed . Not using it. -Doing well - No DTs (5) Hypokalemia: (6) Smoker: Smoking cessation advised. (7) Alcohol abuse: As above. -Counseling done (8) DVT prophylaxis: SCDs Full Code Dispo- Eager to be discharged Ok to discharge home today Updated by bedside. Subjective Patient is feeling much better. Denies any abdominal pain, nausea, vomiting, fever, chills. Eager to be discharged Physical Exam Physical Exam: GENERAL- AAOX3, No acute distress LUNGS- Air entry bilaterally equal. No rales, rhonchi, crackles, wheezes heard. HEART- Regular rate and rhythm. No murmurs ABDOMEN- Soft, non tender, non distended, Bowel sounds heard. EXTREMITIES- Good peripheral pulses, no edema NEUROMUSCULAR- AAOX3, Grossly no focal deficits Results & Data Vital Signs (Past 12 Hours) Vital Signs Temp Pulse Pulse Resp BP Pulse Ox 05/09/19 03:37 100 H 164/96 H 05/08/19 23:41 36.8 C 96 H 18 185/107 H 95 05/08/19 20:45 100 H 155/82 H (1) Hypertension Hypertension type: unspecified Qualified Code(s): I10 - Essential (primary) hypertension
--- NOTE | 2019-05-09 08:52 | Discharge Summary ---
Date of Service May 09, 2019 Admission HPI Per Admitting Provider 58-year-old female who presents the ED with altered mental status. History is currently unobtainable from the patient and some information is obtained from the who is the bedside. He reports that over the past week, patient has had a very poor appetite. Patient also had back surgery in November. Per review of outpatient records, orthopedic surgeon stopped prescribing the patient oxycodone. Patient was then prescribed tramadol by PCP for pain control. reports that about 1 week ago, patient started using alcohol to help control her back pain. He reports that she has drank about 60 cans of beer in the past week. He reports that she stated she did not feel well last evening. She woke up around 530 this morning and requested a cup of tea. Patient was sitting in the living room drinking her tea when the heard a loud noise for me in the room. He went to check on her, he reports he saw the cup of tea on the floor and patient was very stiff with eyes closed and would not respond. She subsequently then had a seizure. EMS was called and patient was brought to the ED for further evaluation. In the ED, labs show a critically low sodium of 110. Patient is agitated and restless. Head CT, CXR, head CTA, neck CTA are all negative for acute findings. In the ER, patient received IVF, IV Keppra, lorazepam 2 mg IM, lorazepam 2 mg SL, potassium replacement. Patient was evaluated by Dr. Huitron in the ED and will be transferred to the ICU for further management. Principal Diagnosis 1. Hyponatremia, likely SIADH 2. Seizure probably secondary to severe hyponatremia 3. Alcohol withdrawal without DTs 4. HTN, uncontrolled 5. Hypokalemia Secondary diagnoses on discharge 1. Tobacco abuse disorder 2. Alcohol abuse Discharge Exam GENERAL- AAOX3, No acute distress LUNGS- Air entry bilaterally equal. No rales, rhonchi, crackles, wheezes heard. HEART- Regular rate and rhythm. No murmurs ABDOMEN- Soft, non tender, non distended, Bowel sounds heard. EXTREMITIES- Good peripheral pulses, no edema NEUROMUSCULAR- AAOX3, Grossly no focal deficits Discharge Data Allergies Allergy/AdvReac Type Severity Reaction Status Date / Time Penicillins Allergy Severe ANAPHYLAXIS Verified 05/03/19 08:06 adhesive Allergy Intermediate REDNESS Verified 05/03/19 08:06 WITH SOME BANDAIDS sulfamethoxazole Allergy Intermediate HIVES RASH Verified 05/03/19 08:06 trimethoprim Allergy Intermediate HIVES RASH Verified 05/03/19 08:06 Bactrim Allergy Unknown HIVES RASH Unverified 05/03/19 08:06 pravastatin AdvReac Mild MUSCLE PAIN Verified 05/03/19 08:06 Consultations 05/03/19 07:33 Consult Expanded Duty Dental Assistant Stat 05/03/19 07:38 ED Decision to Admit Stat 05/03/19 08:13 Consult Expanded Duty Dental Assistant Routine 05/03/19 09:09 Consult Case Management - Discharge Planning Routine 05/05/19 14:28 Consult Nephrology Routine Ordered Studies 05/03/19 06:48 CT head/brain wo con Stat 05/03/19 06:49 CT angio head w con Stat CT angio neck with con Stat Hospital Course (1) Hyponatremia: Resolving Presented with severe hyponatremia 110 causing seizure in setting of alcohol withdrawal. Improving and up to 130 today Urine output >2 L on admission, DDAVP administered. 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 -CT head- neg, EEG -normal sleep routine EEG, excessive beta activity is a normal variant and can be seen as medication side effect. No epileptiform activity is recorded. -No indication of anti seizure medications (3) Hypertension: Uncontrolled -Metoprolol 25 mg PO BID was started during this admission as was tachycardic and BP high. Added Lisinopril 10 mg daily during this admission. -Continue with Verapamil 240 g daily -Monitor outpatient (4) Alcohol withdrawal delirium: Awake, alert, oriented x 3 Received phenobarbital on 05/04/2019. -Continue with gabapentin protocol and Ativan as needed . Not using it. -Doing well - No DTs (5) Hypokalemia: (6) Smoker: Smoking cessation advised. (7) Alcohol abuse: As above. -Counseling done (8) DVT prophylaxis: SCDs Full Code Dispo- Eager to be discharged Ok to discharge home today Updated by bedside. Total Time Total Time Spent Total Time Spent (In Minutes): 40 minutes Discharge Plan Discharge Items Patient Disposition: Home - Self-Care Reason For Visit: HYPONATREMIA Discharge Diagnosis: 1. Hyponatremia 2. Seizure likely secondary to hyponatremia Discharge Goals: Decrease discomfort Activity: Resume your previous activity Driving/Machine Use Comment: DO NOT DRIVE till further evaluated by your PCP Non-emergency contact: Primary Care Provider Call non-emergency contact if: your symptoms worsen Follow-up/Referrals: Daphne Stauffer, [Primary Care Provider] - (We will call you with follow-up appointment date and time) Diet: Regular Addtl Provider Instructions: You were admitted to the hospital for hyponatremia, low sodium likely causing seizure. You received care in the ICU as well. Medication changes 1. New medicationmetoprolol 25 mg twice a day 2. New medicationlisinopril 10 mg daily Driving Do not drive until further evaluated by her primary care physician as you had a seizure. Prescriptions: New metoprolol tartrate 25 mg Tablet 25 mg PO BID 30 Days Qty: 60 RF: 0 lisinopril 10 mg tablet 10 mg PO DAILY Qty: 30 RF: 0 Continued acetaminophen [Tylenol Extra Strength] 500 mg Tablet 1,000 mg PO TID RF: 0 atorvastatin 10 mg Tablet 10 mg PO HS RF: 0 clonazepam 1 mg Tablet 1.5 mg PO HS PRN (Reason: restless legs) RF: 0 tramadol 50 mg Tablet 100 mg PO QID PRN (Reason: Back Pain) RF: 0 verapamil 240 mg Tablet Extended Release 240 mg PO PM RF: 0 gabapentin 100 mg Capsule 200 mg PO TID RF: 0 Stand-Alone Forms: [facility] Discharge Orders: Discharge Order (Routine); Ordered 05/09/19 Ordered By: Marilee Cuellar Admission Data Admit Date/Time: 05/03/19 08:08 Attending Provider: Marilee Cuellar Admit Provider: Olayinka Don Primary Care Provider: Daphne Stauffer Other Providers: Barber Huitron ; Sherrell Renee ; Olayinka Don ; Joaquim Santamaria Service: Medical
== END 2019-05-09 10:23 | disposition home or self-care (01) | DRG 644 ==
LOC: ED 06:45 → MERGE 06:45 → EDBD 06:45 → SUATTDRO 08:08 → 1E 08:08 → 2S 05-06 18:00 → 4W 05-07 15:50